=== PATIENT | female | born 1945 | race Caucasian/White ===

== ENCOUNTER 2018-02-27 21:54 | Inpatient (IN) | payer MEDICARE ==
[~2018-02-27] VITALS: Ht 160 cm; Wt 66.4 kg
--- NOTE | 2018-02-27 22:00 | NUR ---
73 yo female bb daughter. patient is alert and oriented, per daughter patient left eye and left mouth seems to be drooping. patient has a history of stroke with left sided deficit. noted weakness from left upper extremity, per family that is from her previous stroke. patient was assisted to er bed, skin warm and dry, resp even and unlabored. patient was gowned, placed on cardia monitor. awaiting orders from provider
[2018-02-27] MEDS ORDERED: GLIM4TAB2 PO (22:24)
[2018-02-27] MEDS ORDERED: METO25TA6 PO (22:24)
[2018-02-27] MEDS ORDERED: LEVO500T90 PO (22:26)
[2018-02-27] MEDS ORDERED: LOSA100T15 PO (22:26)
[2018-02-27] MEDS ORDERED: METF10004 PO (22:26)
[2018-02-27] MEDS ORDERED: ACID1TAB14 PO (22:26)
[2018-02-27] MEDS ORDERED: LORA0.5T PO (22:26)
[2018-02-27 22:30] LABS: BASOPHILS # (AUTO) 0.1 /CMM (0.0-0.2); BASOPHILS % (AUTO) 0.5 % (0.0-2.0); EOSINOPHILS % (AUTO) 0.2 % (0.0-6.0); HEMATOCRIT 34 % (33-45); HEMOGLOBIN 11.6 g/dL (11.5-14.8); LYMPHOCYTES # (AUTO) 1.9 /CMM (0.8-4.8); LYMPHOCYTES % (AUTO) 17.9 % (20.0-44.0); MEAN CORPUSCULAR HEMOGLOBIN 30 PG (26.0-33.0); MEAN CORPUSCULAR HGB CONC 34 g/dl (31.0-36.0); MEAN CORPUSCULAR VOLUME 88 fL (82-100); MONOCYTES # (AUTO) 0.7 /CMM (0.1-1.30); MONOCYTES % (AUTO) 6.9 % (2.0-12.0); NEUTROPHILS # (AUTO) 7.7 /CMM (1.8-8.9); NEUTROPHILS % (AUTO) 74.5 % (43.0-81.0); PLATELET COUNT (AUTO) 406 /CMM (150-450); RDW COEFFICIENT OF VARIATION 13.8 (11.5-15.0); RED BLOOD CELL COUNT(AUTO) 3.91 MIL/uL (4.0-5.2); WHITE BLOOD COUNT (AUTO) 10.4 K/uL (4.3-11.0)
[2018-02-27] MEDS ORDERED: IV NS 0.9% 1,000 ML BAG IV ONE (22:30)
[2018-02-27 22:44] LABS: ALANINE AMINOTRANSFERASE 22 U/L (12-78); ALBUMIN 3.9 g/dL (3.4-5.0); ALKALINE PHOSPHATASE 110 U/L (46-116); ASPARTATE AMINOTRANSFERASE 38 U/L (15-37); BILIRUBIN,DIRECT 0.1 mg/dL (0.0-0.2); BILIRUBIN,TOTAL 0.4 mg/dL (0.2-1.0); CALCIUM, SERUM 9.6 mg/dL (8.5-10.1); CARBON DIOXIDE 24 mmol/L (21-32); CHLORIDE 90 mmol/L (98-107); GLUCOSE 119 mg/dL (74-106); POTASSIUM 4.2 mmol/L (3.5-5.1); SODIUM SERUM 124 mmol/L (136-145); TOTAL PROTEIN, SERUM 8.3 g/dL (6.4-8.2); UREA NITROGEN, BLOOD 16 mg/dL (7-18)
[2018-02-27 22:46] LABS: TROPONIN I < 0.017 ng/mL (0.00-0.056)
--- NOTE | 2018-02-27 23:00 | NUR ---
BED 328-2
[2018-02-27 23:04] LABS: INR 0.96 (0.87-1.13)
--- NOTE | 2018-02-27 23:52 | NUR ---
REPORT GIVEN TO RN FOR JOCELYN
--- NOTE | 2018-02-27 23:59 | NUR ---
TRANSPORTED PT TO TELE BED WITHOUT INCIDENT
[2018-02-28] VITALS: BP 147/78
--- NOTE | 2018-02-28 | NUR ---
RN ADMITTING NOTES PATIENT BROUGHT INTO THE UNIT VIA GURNEY, PT IS ALERT AND ORIENTED X 2, NO SOB NOTED, BREATHING EVEN AND UNLABORED, VERBALLY RESPONSIVE. PT INITIALLY LOOKING FOR HER DAUGHTER, FIDEL WHO ACCOMPANIED PT IN THE ER AND LIVES WITH HER AT HOME. ORIENTED PT TO UNIT, ROOM, ADMISSION PROCESS, USE OF CALL LIGHT, VERBALIZED UNDERSTANDING BUT NEEDS REINFORCEMENT. CALLED PT'S DAUGHTER FIDEL, SPOKE WITH PATIENT AND RE-ASSURED PT SHE WILL BE IN THE UNIT IN THE AM. PATIENT AGREED BUT CONTINUES TO NEED REINFORCEMENT. ALL PATIENT'S NEEDS ATTENDED TO, CALL LIGHT PLACED WITHIN EASY REACH WITH SITTER AT BEDSIDE. WILL CONTINUE TO MONITOR THIS PATIENT.
--- NOTE | 2018-02-28 00:05 | NUR ---
HOT REPAIRMAN NOTES PATIENT UNDER TELE MONITORING, ST @ 105 BPM AT THIS TIME.
[2018-02-28] MEDS ORDERED: ONDANSETRON HCL/PF 4 MG/2 ML VIAL IVP PRN (00:30)
[2018-02-28] MEDS ORDERED: MAGNESIUM HYDROXIDE 30 ML UDC PO PRN (00:30)
[2018-02-28] MEDS ORDERED: ACETAMINOPHEN 325 MG TABLET PO PRN (00:30)
[2018-02-28] MEDS ORDERED: DEXTROSE 50%-WATER 50 ML DISP.SYRIN IV PRN (00:30)
[2018-02-28] MEDS ORDERED: HYDROCODONE/APAP 5/325MG 1 EACH TABLET PO PRN (00:30)
[2018-02-28] MEDS ORDERED: ZOLPIDEM TARTRATE 5 MG TABLET PO PRN (00:30)
[2018-02-28 00:35] LABS: CHOLESTEROL 141 mg/dL (<200); HDL CHOLESTEROL 33 mg/dL (40-60); LDL 89 mg/dL (0-99); TRIGLYCERIDES 160 mg/dL (30-150)
[2018-02-28] MEDS ORDERED: QUETIAPINE FUMARATE 25 MG TABLET PO PRN (01:00)
[2018-02-28] MEDS: ENOXAPARIN SODIUM 40 MG/0.4 ML DISP.SYRIN SQ SCH ×2 (01:09→23:38)
[2018-02-28] MEDS: LEVOFLOXACIN (500MG) 500 MG TABLET PO SCH ×2 (01:12→23:39)
[2018-02-28] MEDS: IV NS 0.9% 1,000 ML IV PRN ×2 (01:18→16:11)
[2018-02-28 01:54] LABS: ALANINE AMINOTRANSFERASE 21 U/L (12-78); ALBUMIN 3.7 g/dL (3.4-5.0); ALKALINE PHOSPHATASE 107 U/L (46-116); ASPARTATE AMINOTRANSFERASE 40 U/L (15-37); B-TYPE NATRIURETIC PEPTIDE 229 PG/ML (0-125); BILIRUBIN,TOTAL 0.5 mg/dL (0.2-1.0); CALCIUM, SERUM 8.5 mg/dL (8.5-10.1); CARBON DIOXIDE 27 mmol/L (21-32); CHLORIDE 91 mmol/L (98-107); CREATININE 0.9 mg/dL (0.6-1.3); GLUCOSE 119 mg/dL (74-106); POTASSIUM 4.3 mmol/L (3.5-5.1); SODIUM SERUM 125 mmol/L (136-145); TOTAL PROTEIN, SERUM 8.1 g/dL (6.4-8.2); UREA NITROGEN, BLOOD 16 mg/dL (7-18)
[2018-02-28 03:28] LABS: THYROID STIMULATING HORMONE 0.651 uIU/mL (0.358-3.74)
[2018-02-28 05:04] LABS: APPEARANCE,URINE CLEAR (CLEAR); BILIRUBIN,URINE NEGATIVE (NEGATIVE); BLOOD, URINE TRACE-INTA Ery/uL (NEGATIVE); COLOR,URINE OTHER (YELLOW); KETONES,URINE 1+ (NEGATIVE); LEUKOCYTE ESTERASE ,URINE NEGATIVE (NEGATIVE); NITRITE, URINE NEGATIVE (NEGATIVE); PH,URINE 7.5 (5.0-8.0); PROTEIN,URINE TRACE mg/dl (NEGATIVE); UGLUCOSE NEGATIVE (NEGATIVE); UROBILINOGEN,URINE 0.2 EU/dL (0.2)
[2018-02-28 05:23] LABS: BACTERIA,URINE Few /HPF (None Seen); SQUAMOUS EPITHELIAL CELL,UR Few /HPF (None Seen); WBC,URINE 21-50 /HPF (0-3)
[2018-02-28] MEDS: BLOOD SUGAR DIAGNOSTIC 1 EACH STRIP IN SCH ×4 (05:57→23:10)
[2018-02-28] MEDS: INSULIN REGULAR, HUMAN 100 UNIT/ML 3 ML VIAL SQ PRN ×4 (06:03→23:12)
[2018-02-28 06:36] LABS: BASOPHILS % (AUTO) 0.1 % (0.0-2.0); HEMATOCRIT 31 % (33-45); HEMOGLOBIN 10.5 g/dL (11.5-14.8); LYMPHOCYTES % (AUTO) 21.9 % (20.0-44.0); MEAN CORPUSCULAR HEMOGLOBIN 30 PG (26.0-33.0); MEAN CORPUSCULAR HGB CONC 34 g/dl (31.0-36.0); MEAN CORPUSCULAR VOLUME 89 fL (82-100); MONOCYTES # (AUTO) 0.6 /CMM (0.1-1.30); MONOCYTES % (AUTO) 6.7 % (2.0-12.0); NEUTROPHILS # (AUTO) 6.4 /CMM (1.8-8.9); NEUTROPHILS % (AUTO) 71.3 % (43.0-81.0); PLATELET COUNT (AUTO) 335 /CMM (150-450); RDW COEFFICIENT OF VARIATION 13.4 (11.5-15.0); RED BLOOD CELL COUNT(AUTO) 3.51 MIL/uL (4.0-5.2); WHITE BLOOD COUNT (AUTO) 8.9 K/uL (4.3-11.0)
--- NOTE | 2018-02-28 06:47 | NUR ---
HIGH SCHOOL LIBRARY MEDIA SPECIALIST CLOSING NOTES PATIENT IN BED, ASLEEP BUT EASILY AROUSABLE, NO SOB NOTED, BREATHING EVEN AND UNLABORED, PT IS COMPLIANT TO CARE, DENIES PAIN, NO FACIAL GRIMACING NOTED AND IS IN NO ACUTE DISTRESS. PT ALERT AND ORIENTED X 1 -2, ABLE TO VERBALIZE NEEDS. ALL PATIENT'S NEEDS ATTENDED TO, RE-ORIENTED NEEDED. SITTER AT BEDSIDE, BED PLACED IN LOW POSITION, LOCKED IN PLACE, CALL LIGHT IN EASY REACH. PT ON TELE MONITORING, SINUS RHYTHM/TACH AT 95-120s. TURNED AND REPOSITIONED Q2H, NEUROCHECKS DONE Q2H. WILL ENDORSE TO AM SHIFT NURSE FOR CONTINUITY OF CARE.
[2018-02-28 07:02] LABS: CALCIUM, SERUM 8.5 mg/dL (8.5-10.1); CARBON DIOXIDE 25 mmol/L (21-32); CHLORIDE 94 mmol/L (98-107); CREATININE 0.9 mg/dL (0.6-1.3); GLUCOSE 127 mg/dL (74-106); MAGNESIUM 1.6 mg/dL (1.8-2.4); POTASSIUM 4.5 mmol/L (3.5-5.1); SODIUM SERUM 129 mmol/L (136-145); UREA NITROGEN, BLOOD 16 mg/dL (7-18)
--- NOTE | 2018-02-28 08:00 | NUR ---
MS RN NOTES PATIENT IN BED RESTING NO SOB OR ACUTE DISTRESS NOTED. PATIENT NOTED WITH FACIAL DROOP WHICH HAS IMPROVED SINCE YESTERDAY. WITH LEFT SIDED WEAKNESS. PERIPHERAL IV INTACT PATENT. BED IN LOW LOCKED POSITION. CALL LIGHT WITHIN REACH. WILL CONTINUE TO MONITOR.
[2018-02-28] MEDS: ASPIRIN 81 MG TAB.CHEW PO SCH (08:55)
--- NOTE | 2018-02-28 09:00 | NUR ---
MS RN NOTES PATIENT SEEN AND EVALUATED BY DR. JONES ORDERS NOTED AND CARRIED OUT.
[2018-02-28] MEDS ORDERED: Magnesium 1GM/D5W 100ML PREMIX 100 ML IV SCH (10:00)
[2018-02-28] MEDS: Magnesium 1GM/D5W 100ML PREMIX 100 ML IV SCH ×2 (10:24→11:43)
[2018-02-28 11:55] LABS: CHOLESTEROL 122 mg/dL (<200); HDL CHOLESTEROL 26 mg/dL (40-60); LDL 82 mg/dL (0-99); TRIGLYCERIDES 176 mg/dL (30-150)
--- NOTE | 2018-02-28 18:15 | NUR ---
MS RN NOTES PATIENT IN BED RESTING DAUGHTER AT BEDSIDE. DAUGHTER STATES HAS HAS SIGNIFICANTLY IMPROVED SINCE YESTERDAY. PATIENT ALERT, ORIENTED X2. DENIES ANY DISCOMFORT. ALL DUE MEDICATIONS ADMINISTERED. ALL NEEDS MET WILL ENDORSE TO PM SHIFT.
--- NOTE | 2018-02-28 19:00 | NUR ---
MS RN OPENING NOTE RECEIVE PATIENT AWAKE IN BED, A/O X1-2,NO SOB OR DISTRESS NOTED, CALL LIGHT WITHIN REACH. SAFETY MEASURES IMPLEMENTED. WILL CONTINUE TO MONITOR THROUGHOUT SHIFT.
[2018-02-28 20:00] VITALS: BP 129/63
[2018-02-28] MEDS: ATORVASTATIN 10 MG TABLET PO SCH (21:08)
[2018-03-01] MEDS: IV NS 0.9% 1,000 ML IV PRN ×2 (05:15→21:08)
[2018-03-01] MEDS: BLOOD SUGAR DIAGNOSTIC 1 EACH STRIP IN SCH ×4 (05:24→23:14)
[2018-03-01] MEDS: INSULIN REGULAR, HUMAN 100 UNIT/ML 3 ML VIAL SQ PRN ×4 (05:25→23:19)
[2018-03-01 06:08] LABS: BASOPHILS % (AUTO) 0.3 % (0.0-2.0); HEMATOCRIT 33 % (33-45); HEMOGLOBIN 10.8 g/dL (11.5-14.8); LYMPHOCYTES # (AUTO) 2.3 /CMM (0.8-4.8); LYMPHOCYTES % (AUTO) 29.3 % (20.0-44.0); MEAN CORPUSCULAR HEMOGLOBIN 30 PG (26.0-33.0); MEAN CORPUSCULAR HGB CONC 33 g/dl (31.0-36.0); MEAN CORPUSCULAR VOLUME 90 fL (82-100); MONOCYTES # (AUTO) 0.6 /CMM (0.1-1.30); NEUTROPHILS # (AUTO) 4.9 /CMM (1.8-8.9); NEUTROPHILS % (AUTO) 62.4 % (43.0-81.0); PLATELET COUNT (AUTO) 326 /CMM (150-450); RDW COEFFICIENT OF VARIATION 13.4 (11.5-15.0); RED BLOOD CELL COUNT(AUTO) 3.65 MIL/uL (4.0-5.2); WHITE BLOOD COUNT (AUTO) 7.9 K/uL (4.3-11.0)
[2018-03-01 06:15] LABS: ALANINE AMINOTRANSFERASE 18 U/L (12-78); ALBUMIN 3.3 g/dL (3.4-5.0); ALKALINE PHOSPHATASE 87 U/L (46-116); ASPARTATE AMINOTRANSFERASE 24 U/L (15-37); BILIRUBIN,TOTAL 0.4 mg/dL (0.2-1.0); CALCIUM, SERUM 8.4 mg/dL (8.5-10.1); CARBON DIOXIDE 26 mmol/L (21-32); CHLORIDE 99 mmol/L (98-107); CREATININE 0.8 mg/dL (0.6-1.3); GLUCOSE 116 mg/dL (74-106); MAGNESIUM 2.2 mg/dL (1.8-2.4); POTASSIUM 3.6 mmol/L (3.5-5.1); SODIUM SERUM 132 mmol/L (136-145); TOTAL PROTEIN, SERUM 7.3 g/dL (6.4-8.2); UREA NITROGEN, BLOOD 12 mg/dL (7-18)
--- NOTE | 2018-03-01 06:16 | NUR ---
MS RN CLOSING NOTES PT COMFORTABLY ASLEEP AND EASILY AWAKEN, STABLE CONDITION. RESPIRATION EVEN AND UNLABORED. KEPT CLEAN AND DRY AND COMFORTABLE, ALL NURSING CARE RENDERED. NEEDS ATTENDED AND ANTICIPATED, NOT IN DISTRESS, NO FACIAL GRIMACING NOTED. ASSISTED REPOSITION EVERY 2 HOURS. ON LOW BED AT ALL TIMES TO ENSURE SAFETY. SAFE HAZARD FREE ENVIRONMENT PROVIDED. CALL LIGHT WITHIN EASY TO REACH. WILL ENDORSE NEXT SHIFT CONTINUITY OF CARE.
[2018-03-01 08:00] VITALS: BP 135/76
[2018-03-01] MEDS: ASPIRIN 81 MG TAB.CHEW PO SCH (10:22)
--- NOTE | 2018-03-01 16:35 | NUR ---
BLOOD SUGARS STABLE,MED X1 FOR HEADACHE WITH TYLENOL 650 MG PO.
[2018-03-01 18:36] VITALS: BP 137/66
--- NOTE | 2018-03-01 19:09 | NUR ---
MS RN OPENING NOTE RECEIVE PATIENT AWAKE IN BED, A/O X1, NO SOB OR DISTRESS NOTED, CALL LIGHT WITHIN REACH. SAFETY MEASURES IMPLEMENTED. WILL CONTINUE TO MONITOR THROUGHOUT SHIFT.
[2018-03-01 20:00] VITALS: BP 149/71
[2018-03-01] MEDS: ATORVASTATIN 10 MG TABLET PO SCH (21:08)
[2018-03-01] MEDS: LEVOFLOXACIN (500MG) 500 MG TABLET PO SCH (23:32)
[2018-03-01] MEDS: ENOXAPARIN SODIUM 40 MG/0.4 ML DISP.SYRIN SQ SCH (23:34)
[2018-03-02] MEDS: INSULIN REGULAR, HUMAN 100 UNIT/ML 3 ML VIAL SQ PRN ×3 (05:30→17:18)
[2018-03-02] MEDS: BLOOD SUGAR DIAGNOSTIC 1 EACH STRIP IN SCH ×3 (05:31→17:17)
--- NOTE | 2018-03-02 06:29 | NUR ---
MS RN CLOSING NOTES PT COMFORTABLY ASLEEP AND EASILY AWAKEN, RESPIRATION EVEN AND UNLABORED.STABLE,NOT IN DISTRESS. KEPT CLEAN AND DRY AND COMFORTABLE, ALL NURSING CARE RENDERED. NEEDS ATTENDED AND ANTICIPATED,NO FACIAL GRIMACING NOTED. ASSISTED REPOSITION EVERY 2 HOURS. ON LOW BED AT ALL TIMES TO ENSURE SAFETY. SAFE HAZARD FREE ENVIRONMENT PROVIDED. CALL LIGHT WITHIN EASY TO REACH. WILL ENDORSE NEXT SHIFT CONTINUITY OF CARE.
--- NOTE | 2018-03-02 07:10 | NUR ---
RN NOTES PT IS SITTING UP IN BED, AWAKE AND RESTING COMFORTABLY WITH SITTER AT BEDSIDE. PT ON RA, RESPIRATIONS ARE EVEN AND UNLABORED. IV ON RFA INTACT AND RUNNING NS @ 75ML/HR. NO SIGNS OF DISTRESS NOTED. SAFETY MEASURES ARE IN PLACE, CALL LIGHT IS IN REACH. WILL CONTINUE TO MONITOR.
[2018-03-02 08:00] VITALS: BP 102/65
[2018-03-02] MEDS: ASPIRIN 81 MG TAB.CHEW PO SCH (08:13)
[2018-03-02 16:00] VITALS: BP 149/83
[2018-03-02 16:30] VITALS: BP 178/91
--- NOTE | 2018-03-02 17:05 | NUR ---
RN NOTES BP IS 178/91, MADE AWARE. METOPROLOL 25MG BID ORDERED. WILL ADMINISTER AND CONTINUE TO MONITOR.
[2018-03-02] MEDS: METOPROLOL TARTRATE 25 MG TABLET PO SCH (17:17)
[2018-03-02 18:40] VITALS: BP 155/78
--- NOTE | 2018-03-02 18:45 | NUR ---
RN NOTES PT IS LAYING DOWN IN BED, RESTING COMFORTABLY. PT ON RA, RESPIRATIONS ARE EVEN AND UNLABORED. IV ON RFA INTACT AND RUNNING NS @ 75ML/HR. ALL MEDS WERE GIVEN ORDERED. PT KEPT CLEAN AND DRY, REPOSITIONED Q2HRS. NO SIGNS OF DISTRESS NOTED. SAFETY MEASURES ARE IN PLACE, CALL LIGHT IS IN REACH. WILL ENDORSE TO USER EXPERIENCE TEAM LEAD RN FOR CONTINUITY OF CARE.
--- NOTE | 2018-03-02 19:20 | NUR ---
RN MS NOTES NOTED PATIENT WITH ELEVATED BLOOD PRESSURE OF 168/103, HR 110, NO DISTRESS PRESENT AT THIS TIME, MD MAYO AWARE WITH NEW ORDERS.AWAIT FOR PHARMACY VERIFICATION. BLOOD PRESSURE WAS ALSO TAKEN MANUALLY AT 170/100, HR 110. WILL CONTINUE TO MONITOR.
--- NOTE | 2018-03-02 19:35 | NUR ---
RN MS NOTES PATIENT IN BED AWAKE ALERT TO SELF ABLE TO HAVE SIMPLE CONVERSATIONS NOTED FORGETFUL AND CONFUSED AT TIMES. UZBEK SPEAKER, DENIES ANY PAIN OR DISCOMFORT AT THIS TIME, RESPIRATIONS EVEN AND UNLABORED WITH EQUAL RISE AND FALL OF CHEST. IV SITE TO RIGHT FA #20 INTACT AND PATENT, NO REDNESS, NO INFILTRATION PRESENT, IVF RUNNING ORDERED, ORIENTED TO STAFF AND CALL LIGHT, CALL LIGHT KEPT WITHIN REACH, SAFETY PRECAUTIONS IN PLACE LOW BED, BED LOCKED , BED ALARM IN PLACE, FLUIDS OFFERED TOLERATED , PATIENT REMAINS COMFORTABLE AT THIS TIME.WILL CONTINUE TO MONITOR.
[2018-03-02] MEDS: hydrALAZINE HCL 10 MG TABLET PO PRN (19:49)
[2018-03-02 19:59] VITALS: BP 168/103
[2018-03-02 20:00] VITALS: BP 168/103
[2018-03-02] MEDS: ATORVASTATIN 10 MG TABLET PO SCH (21:26)
--- NOTE | 2018-03-02 21:45 | NUR ---
RN MS NOTES BLOOD PRESSURE REASSESSED NOTED MEDICATION WAS EFFECTIVE. 137/71, HR 97.
[2018-03-03] MEDS: BLOOD SUGAR DIAGNOSTIC 1 EACH STRIP IN SCH ×3 (00:23→12:14)
[2018-03-03] MEDS: INSULIN REGULAR, HUMAN 100 UNIT/ML 3 ML VIAL SQ PRN ×3 (00:30→12:25)
[2018-03-03] MEDS: LEVOFLOXACIN (500MG) 500 MG TABLET PO SCH (00:35)
[2018-03-03] MEDS: ENOXAPARIN SODIUM 40 MG/0.4 ML DISP.SYRIN SQ SCH (00:47)
[2018-03-03] MEDS: IV NS 0.9% 1,000 ML IV PRN (04:03)
[2018-03-03 06:33] LABS: BASOPHILS % (AUTO) 0.4 % (0.0-2.0); EOSINOPHILS % (AUTO) 0.7 % (0.0-6.0); HEMATOCRIT 33 % (33-45); HEMOGLOBIN 10.9 g/dL (11.5-14.8); LYMPHOCYTES # (AUTO) 1.6 /CMM (0.8-4.8); LYMPHOCYTES % (AUTO) 20.5 % (20.0-44.0); MEAN CORPUSCULAR HEMOGLOBIN 30 PG (26.0-33.0); MEAN CORPUSCULAR HGB CONC 33 g/dl (31.0-36.0); MEAN CORPUSCULAR VOLUME 90 fL (82-100); MONOCYTES # (AUTO) 0.4 /CMM (0.1-1.30); MONOCYTES % (AUTO) 5.1 % (2.0-12.0); NEUTROPHILS # (AUTO) 5.8 /CMM (1.8-8.9); NEUTROPHILS % (AUTO) 73.3 % (43.0-81.0); PLATELET COUNT (AUTO) 354 /CMM (150-450); RDW COEFFICIENT OF VARIATION 13.7 (11.5-15.0); RED BLOOD CELL COUNT(AUTO) 3.69 MIL/uL (4.0-5.2); WHITE BLOOD COUNT (AUTO) 7.9 K/uL (4.3-11.0)
[2018-03-03 06:35] LABS: CALCIUM, SERUM 8.8 mg/dL (8.5-10.1); CARBON DIOXIDE 27 mmol/L (21-32); CHLORIDE 101 mmol/L (98-107); CREATININE 0.7 mg/dL (0.6-1.3); GLUCOSE 165 mg/dL (74-106); POTASSIUM 3.4 mmol/L (3.5-5.1); SODIUM SERUM 135 mmol/L (136-145); UREA NITROGEN, BLOOD 10 mg/dL (7-18)
--- NOTE | 2018-03-03 06:50 | NUR ---
RN MS CLOSING NOTES PATIENT IN BED AWAKE ALERT AND VERBALLY RESPONSIVE, RESPIRATIONS EVEN AND UNLABORED WITH EQUAL RISE AND FALL OF CHEST, DENIES ANY PAIN OR DISCOMFORT AT THIS TIME IV SITE TO RIGHT FA #22 INTACT AND PATENT, NO REDNESS, NO INFILTRATION PRESENT, IVF RUNNING ORDERED. PERINEAL CARE PROVIDED. FLUIDS WERE OFFERED TOLERATED, NO CHANGES OF CONDITION THROUGHOUT SHIFT, SAFETY PRECAUTIONS CONTINUE TO REMAIN IN PLACE. ALL NEEDS ATTENDED, CALL LIGHT KEPT WITHIN REACH, BED ALARM ON. WILL CONTINUE TO MONITOR AND ENDORSE TO NEXT SHIFT.
--- NOTE | 2018-03-03 07:20 | NUR ---
RN OPENING NOTES RECEIVED PT. PT STABLE AND RESTING IN BED. A/OX2, WOLOF SPEAKING ONLY. NO S/S OF RESP DISTRESS OR SOB. NO C/O PAIN. PT TO CONT ABX THERAPY FOR UTI DX. SAFETY MEASURES IN PLACE, CALL LIGHT WITHIN REACH. WILL CONTINUE TO MONITOR.
[2018-03-03 08:00] VITALS: BP 147/82
[2018-03-03] MEDS: ASPIRIN 81 MG TAB.CHEW PO SCH (08:31)
[2018-03-03] MEDS: METOPROLOL TARTRATE 25 MG TABLET PO SCH ×2 (08:32→17:04)
[2018-03-03] MEDS ORDERED: METO25TA20 PO (08:35)
[2018-03-03] MEDS ORDERED: ATOR10TA PO (08:35)
[2018-03-03] MEDS ORDERED: ASPI-1169 PO (08:35)
[2018-03-03] MEDS: POTASSIUM CHLORIDE 20 MEQ TAB.PRT.SR PO SCH ×2 (11:00→12:15)
[2018-03-03] MEDS: hydrALAZINE HCL 10 MG TABLET PO PRN (13:59)
[2018-03-03 16:00] VITALS: BP 135/80
[2018-03-03 17:04] VITALS: BP 135/80
--- NOTE | 2018-03-03 18:30 | NUR ---
BACTERIOLOGIST FOOD NOTE PT DISCHARGED TO [facility]. VSS, NO S/S OF RESP DISTRESS OR SOB. PT HAS NO C/O PAIN AT THIS TIME. DISCHARGE TEACHING PERFORMED, PT REQUIRES ADDITIONAL TEACHING FROM [facility], UNABLE TO VERBALIZE UNDERSTANDING. DISCHARGE INSTRUCTIONS GIVEN TO PT AND [facility]ON[facility] NAYLOR DURING REPORT. IV ACCESS AND ID BAND REMOVED. PT UNABLE TO SIGN D/C INSTRUCTIONS AND BELONGINGS SHEET, BOTH WERE COSIGNED BY ADDITIONAL LICENSED RN. WOUND PHOTO DOCUMENTATION TAKEN BY PREVIOUS VP STRATEGIC PARTNERSHIPS ON 03/03/18 AT APPROXIMATELY 0030. PT LEFT HOSPITAL IN PRIVATE AMBULANCE WITH PARAMEDICS.
== END 2018-03-03 18:48 | DRG 64 ==
LOC: ER 21:58 → TELE 23:31 → MED 02-28 08:23
PROVIDERS: ADMIT Nurse Practitioner Acute Care; ATTEND Nurse Practitioner Acute Care
DX: I63.9 Cerebral infarction, unspecified (principal); G93.41 Metabolic encephalopathy; E87.1 Hypo-osmolality and hyponatremia; E87.2 Acidosis; E86.0 Dehydration; F03.90 Unspecified dementia, unspecified severity, without behavioral disturbance, psychotic disturbance, mood disturbance, and anxiety; I10 Essential (primary) hypertension; Z79.84 Long term (current) use of oral hypoglycemic drugs; Z79.899 Other long term (current) drug therapy; Z86.73 Personal history of transient ischemic attack (TIA), and cerebral infarction without residual deficits; E83.42 Hypomagnesemia; E11.65 Type 2 diabetes mellitus with hyperglycemia; G20 Parkinson's disease
CPT/HCPCS: 36415; 70450-TC; 71045-TC; 80048-TC; 80053-TC; 80061-TC; 80076-TC; 80305; 81000-TC; 82962-TC; 83605-TC; 83735-TC; 83880; 84100-TC; 84443-TC; 84484-TC; 85025-TC; 85652-TC; 85730-TC; 87040-TC; 87081-TC; 87086-TC; 92611-TC; 93307-TC; 93880-TC; 97116-TC; 97530-TC; 97535-TC; A4606; J1650; J1815; J3475; J7030; J7040; Z7610

== ENCOUNTER 2018-07-24 21:47 | Inpatient (IN) | payer MEDICARE ==
[~2018-07-24] VITALS: Ht 160 cm; Wt 606.9 kg
[~2018-07-24 21:47] MED LIST: ACID1TAB14 PO; ASPI-1169 PO; ATOR10TA PO; GLIM4TAB2 PO; LEVO500T90 PO; LORA0.5T PO; LOSA100T31 PO; METF-442 PO; METO25TA20 PO; METO25TA6 PO
--- NOTE | 2018-07-24 22:18 | NUR ---
BBDAUGHTER FROM HOME, PER DAUGHTER "MORE ALTERED THAN NORMAL W/ GENERALIZED WEAKNESS & MORE DIFFICULTY SWALLOWING & WALKING." DAUGHTER STATES PT IS USUALLY ABLE TO FOLLOW COMMANDS, NOTICED CHANGED X2 DAYS AGO, WORSE TODAY. PT IS AWAKE AND CONFUSED. NO ACUTE DISTRESS NOTED AT THIS TIME. PLACED ON CONTINUOUS SANITARY INSPECTOR, WILL CONTINUE TO MONITOR
--- NOTE | 2018-07-24 22:19 | NUR ---
IV INITIATED RIGHT FORARM 18G. LABS DRAWN FROM SITE. RESIDENTIAL PLUMBER AT BEDSIDE FOR COLLECTION. IV INTACT AND PATENT
--- NOTE | 2018-07-24 22:25 | NUR ---
URINE COLLECTED AND PICKED UP BY LAB
[2018-07-24 22:27] LABS: HEMATOCRIT 35 % (33-45); HEMOGLOBIN 11.7 g/dL (11.5-14.8); LYMPHOCYTES # (AUTO) 7.9 /CMM (0.8-4.8); MEAN CORPUSCULAR HGB CONC 34 g/dl (31.0-36.0); MEAN CORPUSCULAR VOLUME 87 fL (82-100); MONOCYTES # (AUTO) 1.3 /CMM (0.1-1.30); MONOCYTES % (AUTO) 12.5 % (2.0-12.0); NEUTROPHILS # (AUTO) 1.3 /CMM (1.8-8.9); NEUTROPHILS % (AUTO) 12.5 % (43.0-81.0); PLATELET COUNT (AUTO) 420 /CMM (150-450); WHITE BLOOD COUNT (AUTO) 10.5 K/uL (4.3-11.0)
[2018-07-24] MEDS ORDERED: IV NS 0.9% 1,000 ML BAG IV ONE (22:30)
[2018-07-24 22:35] LABS: APPEARANCE,URINE SL CLOUDY (CLEAR); BILIRUBIN,URINE NEGATIVE (NEGATIVE); BLOOD, URINE TRACE Ery/uL (NEGATIVE); COLOR,URINE YELLOW (YELLOW); KETONES,URINE NEGATIVE (NEGATIVE); LEUKOCYTE ESTERASE ,URINE 3+ (NEGATIVE); NITRITE, URINE NEGATIVE (NEGATIVE); PROTEIN,URINE NEGATIVE (NEGATIVE); UGLUCOSE NEGATIVE (NEGATIVE); UROBILINOGEN,URINE 0.2 EU/dL (0.2)
[2018-07-24 22:39] LABS: CALCIUM, SERUM 9.2 mg/dL (8.5-10.1); CARBON DIOXIDE 26 mmol/L (21-32); CHLORIDE 92 mmol/L (98-107); CREATININE 0.8 mg/dL (0.6-1.3); GLUCOSE 88 mg/dL (74-106); POTASSIUM 4.4 mmol/L (3.5-5.1); SODIUM SERUM 129 mmol/L (136-145); UREA NITROGEN, BLOOD 15 mg/dL (7-18)
[2018-07-24 22:42] LABS: BACTERIA,URINE Few /HPF (None Seen); SQUAMOUS EPITHELIAL CELL,UR Few /HPF (None Seen); WBC,URINE TOO NUMEROUS TO COUN /HPF (0-3)
--- NOTE | 2018-07-24 22:53 | NUR ---
PT BROUGHT BY RADIOLOGY FOR CT
[2018-07-24] MEDS ORDERED: OLANZAPINE 5 MG TABLET PO ONE (23:00)
[2018-07-24] MEDS ORDERED: CEFTRIAXONE 1GM BAG (ER ONLY) 1 GM/50 ML PIGGYBACK IV ONE (23:00)
[2018-07-24] MEDS ORDERED: CEFTRIAXONE 1GM BAG (ER ONLY) 50 ML IV ONE (23:07)
[2018-07-24] MEDS ORDERED: OLANZAPINE 5 MG TABLET ONE (23:07)
--- NOTE | 2018-07-24 23:42 | NUR ---
GAVE REPORT TO GEORGIE PATTERSON FOR JOCELYN
[2018-07-25] MEDS ORDERED: IV NS 0.9% 1,000 ML IV PRN (00:04)
[2018-07-25 00:21] VITALS: BP 148/76
[2018-07-25] MEDS ORDERED: LORA-259 PO (00:24)
--- NOTE | 2018-07-25 00:25 | NUR ---
PT TRANSFERRED TO HI BED 327-2
[2018-07-25] MEDS ORDERED: HYDROCODONE/APAP 5/325MG 1 EACH TABLET PO PRN (00:30)
[2018-07-25] MEDS ORDERED: MAG HYDROX/AL HYDROX/SIMETH 30 ML UDC PO PRN (00:30)
[2018-07-25] MEDS ORDERED: ACETAMINOPHEN 325 MG TABLET PO PRN (00:30)
[2018-07-25] MEDS ORDERED: MAGNESIUM HYDROXIDE 30 ML UDC PO PRN (00:30)
[2018-07-25] MEDS ORDERED: Z GUARD REMEDY 2 OZ OINT TP PRN (00:30)
[2018-07-25] MEDS ORDERED: ONDANSETRON HCL/PF 4 MG/2 ML VIAL IVP PRN (00:30)
[2018-07-25] MEDS ORDERED: ZOLPIDEM TARTRATE 5 MG TABLET PO PRN (00:30)
--- NOTE | 2018-07-25 00:30 | NUR ---
RN MS ADMISSION NOTES PT BROUGHT INTO THE UNIT VIA GURNEY ACCOMPANIED BY EMT FROM ED. PT IS ALERT AND ORIENTED TO SELF, ABLE TO ANSWER TO NAME AND AWARE OF DATE OF . REORIENTED PATIENT TO TIME, PLACE AND SITUATION. PATIENT WITH NO SOB, BREATHING EVEN, NO FACIAL GRIMACING NOTED AND UNLABORED AND IN NO ACUTE DISTRESS AT THIS TIME. NOTED PT TO BE VERBALLY RESPONSIVE, WITH SLURRED SPEECH, ATTEMPTED TO ORIENT PT TO UNIT, ROOM, CALL LIGHT AND USE OF CALL LIGHT BUT PT HAS POOR CONCENTRATION AND NEEDS REINFORCEMENT. PT'S BED PLACED IN LOW POSITION AND LOCKED IN PLACE, CALL LIGHT PLACED WITHIN EASY REACH. WILL CONTINUE TO MONITOR PT.
[2018-07-25 01:52] LABS: BILIRUBIN,DIRECT 0.1 mg/dL (0.0-0.2); BILIRUBIN,TOTAL 0.3 mg/dL (0.2-1.0)
--- NOTE | 2018-07-25 04:31 | NUR ---
RN NOTE RECEIVED CALL FROM DR. LÓPEZ, INFORMED HIM OF PT'S LACTIC ACID LEVEL = 3.2. MD WITH NEW ORDER TO INCREASE IVF TO 100ML/HR. ALL ORDERS NOTED AND CARRIED OUT. PT AFEBRILE, IN NO ACUTE DISTRESS. WILL CONTINUE TO MONITOR.
[2018-07-25] MEDS: IV NS 0.9% 1,000 ML IV PRN ×2 (06:19→17:03)
--- NOTE | 2018-07-25 06:27 | NUR ---
CLOSING NOTES PT IN BED, ALERT AND ORIENTED X 2, VERBALLY RESPONSIVE. NOTED PT WITH EPISODES OF YELLING AND USING OFFENSIVE TOWARDS STAFF. ADMINISTERED ATIVAN ORDERED, PT COMPLIANT WITH MEDICATION ADMINISTRATION. PT SLEPT INTERMITTENTLY THROUGHOUT THE REST OF THE SHIFT, ALL NEEDS ATTENDED TO, WOUND CARE DONE. TURNED AND REPOSITIONED Q2 HOURS. BED LIGHT WITHIN EASY REACH. WILL ENDORSE TO AM SHIFT NURSE FOR CONTINUITY OF CARE.
[2018-07-25 08:00] VITALS: BP 142/70
--- NOTE | 2018-07-25 08:02 | NUR ---
MS RN NOTES RECEIVED PATIENT ASLEEP IN BED WITH NO DISTRESS NOTED. CALL LIGHT WITHIN REACH. NO C/O PAIN OR DISCOMFORT. PERIPHERAL LINE INTACT AND PATENT. ALL BELONGINGS KEPT NEAR BEDSIDE. BED IN LOW LOCK SETTING. WILL CONTINUE TO MONITOR.
[2018-07-25] MEDS ORDERED: ASPI-1169 PO (08:57)
[2018-07-25] MEDS ORDERED: ATOR10TA PO (08:57)
[2018-07-25] MEDS: METOPROLOL TARTRATE 25 MG TABLET PO SCH ×2 (10:57→21:12)
[2018-07-25 16:00] VITALS: BP 137/68
--- NOTE | 2018-07-25 18:51 | NUR ---
MS RN CLOSING NOTES PATIENT AWAKE IN BED WITH NO DISTRESS NOTED. CALL LIGHT WITHIN REACH. NO C/O PAIN OR DISCOMFORT. PERIPHERAL LINE INTACT AND PATENT. ALL DUE MEDS GIVEN ORDERED WITH NO ASE NOTED. CALL BELONGINGS KEPT NEAR BEDSIDE. BED IN LOW LOCK SETTING. WILL ENDORSE TO ONCOMING SHIFT.
[2018-07-25] MEDS ORDERED: DEXTROSE 50%-WATER 50 ML DISP.SYRIN IV PRN (19:30)
[2018-07-25 20:00] VITALS: BP 155/62
--- NOTE | 2018-07-25 20:00 | NUR ---
RECIEVED ALERT THAT NURSE AT THE BEDSIDE BUT CONFUSED TO THE SITUATION. TV ON TO ATTEMPT TO REORIENTATE HER. OFFERED FLUIDS SWALLOWED W/O PROBLEM ASP D/T HER AGE
[2018-07-25 20:34] VITALS: BP 155/62
--- NOTE | 2018-07-25 20:52 | NUR ---
patient speaks Armenian and confused,lives at home with daughter who is his primary caregiver.Patient requires max assist with adl's. He own a walker and wheelchair as needed for mobility. Family is involved and supportive with plan of care. Addendum: 07/25/18 at 2051 by INOCENCIO GAMBOA RN Amended: Links added.
[2018-07-25] MEDS: ATORVASTATIN 10 MG TABLET PO SCH (21:11)
[2018-07-25] MEDS: CEFTRIAXONE 1 G in IV D5W 50 ML IV SCH (21:11)
[2018-07-25] MEDS: BLOOD SUGAR DIAGNOSTIC 1 EACH STRIP IN SCH (21:26)
[2018-07-25] MEDS: INSULIN REGULAR, HUMAN 100 UNIT/ML 3 ML VIAL SQ PRN (21:30)
[2018-07-25] MEDS ORDERED: LORAZEPAM 0.5 MG TABLET PO PRN (22:00)
[2018-07-26] MEDS: IV NS 0.9% 1,000 ML IV PRN ×2 (04:21→17:36)
--- NOTE | 2018-07-26 04:30 | NUR ---
MD LÓPEZ CALLED MADE AWARE THE BLOOD PRESSURE 70/40 HR 83 INSTRUCTED TO GIVE NS BOLUS 1000ML NOW Addendum: 07/26/18 at 0452 by TREVER POLLARD RN WRONG PATIENT DISREGARD
[2018-07-26] MEDS: BLOOD SUGAR DIAGNOSTIC 1 EACH STRIP IN SCH ×5 (06:33→21:21)
[2018-07-26] MEDS: INSULIN REGULAR, HUMAN 100 UNIT/ML 3 ML VIAL SQ PRN ×4 (06:37→21:31)
--- NOTE | 2018-07-26 06:41 | NUR ---
ENDING NOTES: ALERT WITH CONFUSION. TAKES FLUIDS AND SWALLOWS W/O PROBLEMS BLOOD SUGAR THIS AM 165 3 UNITS GIVEN
--- NOTE | 2018-07-26 07:12 | NUR ---
MS RN NOTES PATIENT IN BED EYES CLOSED, EASY TO AROUSE. RESPOND TO VERBAL AND TACTILE STIMULI. NO ACUTE DISTRESS NOTED. BREATHING UNLABORED. NO SOB NOTED. IV ACCESS PATENT AND INTACT, NO REDNESS OR SWELLING NOTED. SAFETY MEASURES IN PLACE. CALL LIGHT WITHIN REACH. WILL CONTINUE TO MONITOR ACCORDINGLY.
[2018-07-26 07:32] LABS: BASOPHILS % (AUTO) 0.5 % (0.0-2.0); EOSINOPHILS % (AUTO) 0.6 % (0.0-6.0); HEMATOCRIT 35 % (33-45); HEMOGLOBIN 11.8 g/dL (11.5-14.8); LYMPHOCYTES % (AUTO) 12.4 % (20.0-44.0); MEAN CORPUSCULAR HGB CONC 33 g/dl (31.0-36.0); MEAN CORPUSCULAR VOLUME 88 fL (82-100); MONOCYTES # (AUTO) 0.6 /CMM (0.1-1.30); MONOCYTES % (AUTO) 8.1 % (2.0-12.0); NEUTROPHILS # (AUTO) 6.1 /CMM (1.8-8.9); NEUTROPHILS % (AUTO) 78.4 % (43.0-81.0); PLATELET COUNT (AUTO) 378 /CMM (150-450); RED BLOOD CELL COUNT(AUTO) 4.02 MIL/uL (4.0-5.2); WHITE BLOOD COUNT (AUTO) 7.7 K/uL (4.3-11.0)
[2018-07-26 07:47] LABS: CHOLESTEROL 138 mg/dL (<200); HDL CHOLESTEROL 34 mg/dL (40-60); LDL 101 mg/dL (0-99); TRIGLYCERIDES 94 mg/dL (30-150)
[2018-07-26 07:53] LABS: ALANINE AMINOTRANSFERASE 13 U/L (12-78); ALBUMIN 3.4 g/dL (3.4-5.0); ALKALINE PHOSPHATASE 93 U/L (46-116); ASPARTATE AMINOTRANSFERASE 14 U/L (15-37); BILIRUBIN,TOTAL 0.5 mg/dL (0.2-1.0); CALCIUM, SERUM 8.9 mg/dL (8.5-10.1); CARBON DIOXIDE 25 mmol/L (21-32); CHLORIDE 99 mmol/L (98-107); CREATININE 0.7 mg/dL (0.6-1.3); GLUCOSE 188 mg/dL (74-106); MAGNESIUM 1.5 mg/dL (1.8-2.4); PHOSPHORUS 3.1 mg/dL (2.5-4.9); POTASSIUM 3.5 mmol/L (3.5-5.1); SODIUM SERUM 137 mmol/L (136-145); TOTAL PROTEIN, SERUM 7.5 g/dL (6.4-8.2); UREA NITROGEN, BLOOD 10 mg/dL (7-18)
[2018-07-26 08:00] VITALS: BP 162/88
[2018-07-26] MEDS: METOPROLOL TARTRATE 25 MG TABLET PO SCH ×2 (08:44→21:21)
[2018-07-26] MEDS: ASPIRIN 81 MG TAB.CHEW PO SCH (08:44)
--- NOTE | 2018-07-26 09:45 | NUR ---
MS RN NOTES SEEN AND EVALUATED FREIGHT BREAKER FELICIA SALAS WITH NEW ORDERS MADE, NOTED AND CARRIED OUT.
[2018-07-26] MEDS: FLUCONAZOLE (100 MG) 100 MG TABLET PO SCH (10:02)
[2018-07-26] MEDS: Magnesium 1GM/D5W 100ML PREMIX 100 ML IV SCH ×2 (10:33→11:41)
[2018-07-26 16:00] VITALS: BP 142/70
--- NOTE | 2018-07-26 19:00 | NUR ---
MS RN NOTES PATIENT IN BED ALERT WITH PERIODS OF CONFUSION. NO ACUTE DISTRESS NOTED. BREATHING UNLABORED. NO SOB NOTED. IV ACCESS PATENT AND INTACT, NO REDNESS OR SWELLING NOTED. DUE MEDICATIONS GIVEN, NO ASE NOTED. NEEDS ATTENDED AND ANTICIPATED. KEPT CLEAN DRY AND COMFORTABLE.SAFETY MEASURES IN PLACE. CALL LIGHT WITHIN REACH. ENDORSED TO NIGHT NURSE FOR CONTINUITY OF CARE.
--- NOTE | 2018-07-26 19:30 | NUR ---
MS PACU NURSE INITIAL NOTES RECEIVED REPORT FROM AM NURSE AND CHECKING PT IN BED , AWAKE AND ALERT WITH IVF OF NS AT 100ML/HR INFUSING ON HER LEFT FOREARM. NOTICED PT CONFUSION , RE-ORIENTED WHERE SHE AT AND HOW TO USED THE CALL LIGHT SYSTEM. SHE SPEAK EQUATORIAL GUINEAN BUT UNDERSTOOD SOME SIMPLE ARMENIAN. DENIES ANY PAIN OR ANY DISCOMFORT. KEPT HER WARM AND COMFORTABLE AT ALL TIMES. WILL CONTINUE MONITORING. PLACE CALL LIGHT AT REACH. BED ALARM SET FOR PT SAFETY.
[2018-07-26 20:00] VITALS: BP 151/83
[2018-07-26] MEDS: CEFTRIAXONE 1 G in IV D5W 50 ML IV SCH (21:01)
[2018-07-26] MEDS: ATORVASTATIN 10 MG TABLET PO SCH (21:20)
--- NOTE | 2018-07-26 21:25 | NUR ---
MS SHENG NOTES ROUTINE MEDS GIVEN AND BLOOD SUGAR CHECKED DONE 195 3 UNITS OF INSULIN GIVEN KAYLYN SQ ORDERED AND SNACKS ALSO SERVED. IVF NS AT 100 ML/HR STILL INFUSING. FREQUENT RE- ORIENTATION . WILL CONTINUE MONITORING. PLACE CALL LIGHT AT REACH.
[2018-07-26 22:23] VITALS: BP 151/83
--- NOTE | 2018-07-27 05:08 | NUR ---
MS SHENG NOTES PT SLEEPING COMFORTABLY IN BED WITHOUT ANY ACUTE DISTRESS NOTED. KEPT HER WARM AND COMFORTABLE AT ALL TIMES. PLACE CALL LIGHT AT REACH. WILL CONTINUE MONITORING.
[2018-07-27] MEDS: IV NS 0.9% 1,000 ML IV PRN ×2 (05:54→16:03)
--- NOTE | 2018-07-27 06:21 | NUR ---
MS SCHOOL BUS DRIVER/TEACHER ASSISTANT NOTES BLOOD SUGAR CHECKED DONE 199, 3 UNITS OF INSULIN GIVEN SQ ORDERED, NO SIGNS OF HYPER GLYCEMIA NOTED. PT STILL WITH IVF OF NS AT 100ML/HR. WILL CONTINUE MONITORING.
[2018-07-27] MEDS: INSULIN REGULAR, HUMAN 100 UNIT/ML 3 ML VIAL SQ PRN ×4 (06:28→21:45)
[2018-07-27] MEDS: BLOOD SUGAR DIAGNOSTIC 1 EACH STRIP IN SCH ×4 (06:29→21:38)
--- NOTE | 2018-07-27 07:10 | NUR ---
MS RN OPENING NOTES PT AWAKE AND CONFUSED, ORIENTED X1 . BREATHING UNLABORED ON ROOM AIR. IV TO LFA #22 INFUSING NS AT 100 ML/HR. SAFETY PRECAUTIONS OBSERVED. CALL LIGHT WITHIN REACH. WILL CONTINUE TO MONITOR .
--- NOTE | 2018-07-27 07:23 | NUR ---
MS CLIENT ARCHITECT CLOSING NOTES PT AWAKE AND ALERT WITH CONFUSION, ASKING FOR BANANA LEFT MESSAGES TO DIETARY DEPT. STABLE KAYLYN THE NIGHT BUT SLEPT ON AND OFF. IVF STILL INFUSING AND IV LINE PATENT AND INTACT COVERED WITH KERLIX. KEPT HER WARM AND COMFORTABLE AT ALL TIMES. BED ALA RM SET FOR PT SAFETY. NO SIGNS OF ANY ACUTE DISTRESS NOTED. RE-ORIENTED NEEDED. ENDORSE TO AM NURSE FOR CONTINUITY OF CARE.
[2018-07-27 08:00] VITALS: BP 131/68
[2018-07-27] MEDS: ASPIRIN 81 MG TAB.CHEW PO SCH (08:20)
[2018-07-27] MEDS: FLUCONAZOLE (100 MG) 100 MG TABLET PO SCH (08:20)
[2018-07-27] MEDS: METOPROLOL TARTRATE 25 MG TABLET PO SCH ×2 (08:20→20:36)
[2018-07-27 16:12] VITALS: BP 159/78
--- NOTE | 2018-07-27 19:37 | NUR ---
PT AWAKE AND CONFUSED, ORIENTED X1 . BREATHING UNLABORED ON ROOM AIR. IV TO LFA #22 INFUSING NS AT 100 ML/HR. SAFETY PRECAUTIONS OBSERVED. CALL LIGHT WITHIN REACH.
--- NOTE | 2018-07-27 19:38 | NUR ---
MS RN NOTES RECEIVED ON BED A/O X1,FORGETFUL,SPEAK AMHARIC WITH LITTLE PUERTO RICAN,DVT PUMP IN USED FOR DVT PROHYLAXIS.NOTED SACRAL AND BREAST FOLD REDNESS MANAGE WITH REMEDY SKIN BARRIER.WITH IVF NS AT 100ML/HR RATE.SITE PATENT ON LFA. CALL LIGHT IN REACH,NEEDS ANTICIPATED.
--- NOTE | 2018-07-27 19:41 | NUR ---
VOCATIONAL EDUCATION TEACHER NOTES RECEIVED ON BED WITH HOB ELEVATED.WITH HARD OF HEARING ON BOTH EARS,WITH HEARING AID X2.NO IV ACCESS,OK WITH MD PER REPORT BY DAY NURSE MESFIN.NOTED SKIN DISCOLORATION ON RIGHT HAND.DENIES CHEST PAIN.CALL LIGHT IN REACH,NEEDS ANTICIPATED. Addendum: 07/28/18 at 0328 by MARJORIE WELLS RN NOTES NOT INTENDED FOR THIS PATIENT
[2018-07-27 20:00] VITALS: BP 164/80
--- NOTE | 2018-07-27 21:30 | NUR ---
MS RN NOTES BP 164/80,DUE LOPRESSOR 50MG PO GIVEN EARLY .DENIES HEADACHE,NO CHEST PAIN.
[2018-07-27] MEDS: ATORVASTATIN 10 MG TABLET PO SCH (21:37)
[2018-07-28] MEDS: IV NS 0.9% 1,000 ML IV PRN (02:01)
[2018-07-28 04:00] VITALS: BP 108/58
[2018-07-28] MEDS: BLOOD SUGAR DIAGNOSTIC 1 EACH STRIP IN SCH ×2 (05:21→12:05)
[2018-07-28] MEDS: INSULIN REGULAR, HUMAN 100 UNIT/ML 3 ML VIAL SQ PRN ×2 (05:23→12:13)
--- NOTE | 2018-07-28 06:00 | NUR ---
MS RN NOTES ACCU-CHECK BLOOD SUGAR CHECKED 136,COVERED WITH HUMULIN R 2 UNITS PER MILD SLIDING SCALE.
--- NOTE | 2018-07-28 06:01 | NUR ---
MS RN NOTES ON BED SLEEPING,AROUSABLE TO VERBAL STIMULI,NO SOB.IVF INFUSING WELL ON LFA VIA IV PUMP.REPOSITION PER PROTOCOL.AWAITING PLACAMENT AT SNF PER DAUGHTER REQUEST,WANTS TO SPEAK WITH ZACH JACKSON,IN NO ACUTE DISTRESS.WILL ENDORSE TO DAY NURSE FOR JOCELYN
--- NOTE | 2018-07-28 07:30 | NUR ---
RN Opening Note Patient currently asleep, resting in bed but easily arousable to name. Alert and oriented x 2-3, able to make needs known. Primarily Yi speaking, some Occitan spoken. Does not complain of pain or discomfort at this time. Respirations even and unlabored, saturating at 98% on room air. Peripheral IV to the left forearm 22 gauge, intact, patent and infusing NS at 100 ml/hr. Safety and fall precautions in place: bed in lowest and locked postion, side rails up x2, bed alarm on, call light and personal possessions within reach. Reviewed safety precautions and plan of care with patient, verbalized understanding. Will continue to monitor and intervene as needed.
[2018-07-28 08:00] VITALS: BP 142/79
[2018-07-28] MEDS: ASPIRIN 81 MG TAB.CHEW PO SCH (08:29)
[2018-07-28] MEDS: FLUCONAZOLE (100 MG) 100 MG TABLET PO SCH (08:29)
[2018-07-28] MEDS: METOPROLOL TARTRATE 25 MG TABLET PO SCH (08:29)
[2018-07-28 15:30] VITALS: BP 160/73
--- NOTE | 2018-07-28 16:00 | NUR ---
tone artist apprentice Note Patient discharged home in stable condition via EMS transport, DPOA and family member Brooklynn Pavon notified of discharge. digital communications manager and family arranged for EMS transport to the family's private home. Alert and oriented x 2-3, able to make needs known. Primarily Kinyarwanda speaking, some Icelandic spoken. Does not complain of pain or discomfort at this time. Respirations even and unlabored, saturating at 98% on room air. Vital signs stable. Peripheral IV to the left forearm 22 gauge, removed with catheter tip intact. No redness, swelling or inflammation to the site noted. Skin assessment completed and photos in chart. ID band removed. Personal belongings accounted for, verified with family and signed off on belongings form (copy in chart). Discharge instructions and Exitcare provided to both the patient in person, and with Brooklynn (family) over the phone); discharge packet given to EMS for transport. LEONARDO Bolton and LEONARDO Espana signed discharge instructions as verification of information given to DPOA over the phone.
== END 2018-07-28 16:00 | disposition home or self-care (01) | DRG 689 ==
LOC: ER 21:49 → MED 23:28
PROVIDERS: ADMIT Internal Medicine; ATTEND Internal Medicine
DX: N39.0 Urinary tract infection, site not specified (principal); G92 Toxic encephalopathy; E87.1 Hypo-osmolality and hyponatremia; D68.59 Other primary thrombophilia; E87.2 Acidosis; I69.354 Hemiplegia and hemiparesis following cerebral infarction affecting left non-dominant side; B49 Unspecified mycosis; E11.9 Type 2 diabetes mellitus without complications; I10 Essential (primary) hypertension; F03.90 Unspecified dementia, unspecified severity, without behavioral disturbance, psychotic disturbance, mood disturbance, and anxiety; Z88.0 Allergy status to penicillin; Z79.84 Long term (current) use of oral hypoglycemic drugs; Z79.82 Long term (current) use of aspirin; Z79.899 Other long term (current) drug therapy; B96.89 Other specified bacterial agents as the cause of diseases classified elsewhere; E86.1 Hypovolemia; R13.10 Dysphagia, unspecified; I69.391 Dysphagia following cerebral infarction; I69.320 Aphasia following cerebral infarction; E78.5 Hyperlipidemia, unspecified; Z74.09 Other reduced mobility; Z82.49 Family history of ischemic heart disease and other diseases of the circulatory system
CPT/HCPCS: 36415; 70450-TC; 71045-TC; 80048-TC; 80053-TC; 80061-TC; 81000-TC; 82247-TC; 82248-TC; 82962-TC; 83605-TC; 83735-TC; 83921; 84100-TC; 84443-TC; 84484-TC; 85025-TC; 85730-TC; 87040-TC; 87081-TC; 87086-TC; G0378; J0696; J1815; J3475; J7030; J7060

== ENCOUNTER 2018-11-23 15:03 | Inpatient (IN) | payer MEDICARE, MEDICAID ==
[~2018-11-23] VITALS: Ht 152.4 cm; Wt 58.1 kg
[~2018-11-23 15:03] MED LIST changes: -ACID1TAB14 PO; -LEVO500T90 PO; -METO25TA20 PO
[2018-11-23] MEDS ORDERED: DOCU-141 PO (15:42)
[2018-11-23 15:53] LABS: BASOPHILS # (AUTO) 0.1 /CMM (0.0-0.2); BASOPHILS % (AUTO) 0.8 % (0.0-2.0); EOSINOPHILS % (AUTO) 2.6 % (0.0-6.0); HEMATOCRIT 38 % (33-45); HEMOGLOBIN 12.6 g/dL (11.5-14.8); LYMPHOCYTES # (AUTO) 1.8 /CMM (0.8-4.8); LYMPHOCYTES % (AUTO) 16.8 % (20.0-44.0); MEAN CORPUSCULAR HGB CONC 33 g/dl (31.0-36.0); MEAN CORPUSCULAR VOLUME 88 fL (82-100); MONOCYTES # (AUTO) 0.6 /CMM (0.1-1.30); MONOCYTES % (AUTO) 5.2 % (2.0-12.0); NEUTROPHILS % (AUTO) 74.6 % (43.0-81.0); PLATELET COUNT (AUTO) 453 /CMM (150-450); RED BLOOD CELL COUNT(AUTO) 4.33 MIL/uL (4.0-5.2); WHITE BLOOD COUNT (AUTO) 10.8 K/uL (4.3-11.0)
[2018-11-23 16:02] LABS: CALCIUM, SERUM 8.9 mg/dL (8.5-10.1); CARBON DIOXIDE 29 mmol/L (21-32); CHLORIDE 99 mmol/L (98-107); CREATININE 0.7 mg/dL (0.6-1.3); GLUCOSE 163 mg/dL (74-106); POTASSIUM 3.7 mmol/L (3.5-5.1); SODIUM SERUM 140 mmol/L (136-145); UREA NITROGEN, BLOOD 9 mg/dL (7-18)
[2018-11-23 16:15] LABS: ALANINE AMINOTRANSFERASE 16 U/L (12-78); ALBUMIN 3.7 g/dL (3.4-5.0); ALKALINE PHOSPHATASE 114 U/L (46-116); ASPARTATE AMINOTRANSFERASE 13 U/L (15-37); B-TYPE NATRIURETIC PEPTIDE 143 PG/ML (0-125); BILIRUBIN,TOTAL 0.4 mg/dL (0.2-1.0); TOTAL PROTEIN, SERUM 8.1 g/dL (6.4-8.2)
[2018-11-23] MEDS ORDERED: IV NS 0.9% 1,000 ML BAG IV ONE ×2 (17:00→18:00)
[2018-11-23 17:30] LABS: BILIRUBIN,URINE Negative (NEGATIVE); BLOOD, URINE Moderate Ery/uL (NEGATIVE); COLOR,URINE Yellow (YELLOW); KETONES,URINE Negative (NEGATIVE); LEUKOCYTE ESTERASE ,URINE Large (NEGATIVE); NITRITE, URINE Positive (NEGATIVE); PH,URINE 5.5 (5.0-8.0); PROTEIN,URINE 30 mg/dl (NEGATIVE); UGLUCOSE Negative (NEGATIVE); UROBILINOGEN,URINE 0.2 EU/dL (0.2)
[2018-11-23 17:31] LABS: APPEARANCE,URINE CLOUDY (CLEAR); BACTERIA,URINE 1+ /HPF (None Seen); SQUAMOUS EPITHELIAL CELL,UR Few /HPF (None Seen)
[2018-11-23 17:32] LABS: WBC,URINE 21-50 /HPF (0-3)
[2018-11-23] MEDS ORDERED: AZTREONAM 1 G in IV NS 0.9% 100 ML IV ONE (18:00)
[2018-11-23] MEDS ORDERED: LEVOFLOXACIN 750 MG /D5W 150ML 150 ML IV ONE (18:00)
[2018-11-23] MEDS ORDERED: ACETAMINOPHEN ES 500 MG TABLET ONE (18:53)
[2018-11-23] MEDS ORDERED: ACETAMINOPHEN ES 500 MG TABLET PO ONE (19:30)
[2018-11-23 20:00] VITALS: BP 147/79
[2018-11-23] MEDS ORDERED: MAGNESIUM HYDROXIDE 30 ML UDC PO PRN (20:00)
[2018-11-23] MEDS ORDERED: HYDROCODONE/APAP 5/325MG 1 EACH TABLET PO PRN (20:00)
[2018-11-23] MEDS ORDERED: ACETAMINOPHEN 325 MG TABLET PO PRN (20:00)
[2018-11-23] MEDS ORDERED: DEXTROSE 50%-WATER 50 ML DISP.SYRIN IV PRN (20:00)
[2018-11-23] MEDS ORDERED: Z GUARD REMEDY 2 OZ OINT TP PRN (20:00)
[2018-11-23] MEDS ORDERED: ONDANSETRON HCL/PF 4 MG/2 ML VIAL IVP PRN (20:00)
[2018-11-23] MEDS ORDERED: MAG HYDROX/AL HYDROX/SIMETH 30 ML UDC PO PRN (20:00)
[2018-11-23] MEDS: DOCUSATE SODIUM 100 MG CAPSULE PO SCH (22:19)
[2018-11-23] MEDS: METOPROLOL TARTRATE 25 MG TABLET PO SCH (22:19)
[2018-11-23] MEDS: BLOOD SUGAR DIAGNOSTIC 1 EACH STRIP IN SCH (22:20)
[2018-11-23] MEDS: ATORVASTATIN 10 MG TABLET PO SCH (22:20)
[2018-11-23] MEDS: ZOLPIDEM TARTRATE 5 MG TABLET PO PRN (22:20)
[2018-11-23] MEDS: IV NS 0.9% 1,000 ML IV PRN (22:22)
[2018-11-23] MEDS: INSULIN REGULAR, HUMAN 100 UNIT/ML 3 ML VIAL SQ PRN (23:02)
[2018-11-24 04:00] VITALS: BP 154/77
[2018-11-24 06:43] LABS: BASOPHILS % (AUTO) 0.5 % (0.0-2.0); EOSINOPHILS % (AUTO) 1.3 % (0.0-6.0); HEMATOCRIT 36 % (33-45); HEMOGLOBIN 11.9 g/dL (11.5-14.8); LYMPHOCYTES # (AUTO) 1.4 /CMM (0.8-4.8); LYMPHOCYTES % (AUTO) 15.9 % (20.0-44.0); MEAN CORPUSCULAR HGB CONC 33 g/dl (31.0-36.0); MEAN CORPUSCULAR VOLUME 86 fL (82-100); MONOCYTES # (AUTO) 0.4 /CMM (0.1-1.30); NEUTROPHILS # (AUTO) 7.1 /CMM (1.8-8.9); NEUTROPHILS % (AUTO) 78.3 % (43.0-81.0); PLATELET COUNT (AUTO) 401 /CMM (150-450); RED BLOOD CELL COUNT(AUTO) 4.14 MIL/uL (4.0-5.2); WHITE BLOOD COUNT (AUTO) 9.1 K/uL (4.3-11.0)
[2018-11-24 06:46] LABS: CALCIUM, SERUM 8.5 mg/dL (8.5-10.1); CARBON DIOXIDE 27 mmol/L (21-32); CHLORIDE 101 mmol/L (98-107); CREATININE 0.6 mg/dL (0.6-1.3); GLUCOSE 203 mg/dL (74-106); MAGNESIUM 1.6 mg/dL (1.8-2.4); PHOSPHORUS 2.2 mg/dL (2.5-4.9); POTASSIUM 3.7 mmol/L (3.5-5.1); SODIUM SERUM 140 mmol/L (136-145); UREA NITROGEN, BLOOD 9 mg/dL (7-18)
[2018-11-24 06:52] LABS: CHOLESTEROL 117 mg/dL (<200); HDL CHOLESTEROL 31 mg/dL (40-60); LDL 73 mg/dL (0-99); THYROID STIMULATING HORMONE 0.732 uIU/mL (0.358-3.74); TRIGLYCERIDES 148 mg/dL (30-150)
[2018-11-24] MEDS: BLOOD SUGAR DIAGNOSTIC 1 EACH STRIP IN SCH ×4 (07:30→21:44)
[2018-11-24] MEDS: PANTOPRAZOLE 40 MG TABLET.DR PO SCH (07:30)
[2018-11-24 08:00] VITALS: BP 168/82
[2018-11-24] MEDS: METOPROLOL TARTRATE 25 MG TABLET PO SCH ×2 (09:00→21:43)
[2018-11-24] MEDS: LOSARTAN POTASSIUM 50 MG TABLET PO SCH (09:00)
[2018-11-24] MEDS: INSULIN REGULAR, HUMAN 100 UNIT/ML 3 ML VIAL SQ PRN ×2 (09:28→22:18)
[2018-11-24] MEDS ORDERED: Magnesium 1GM/D5W 100ML PREMIX 100 ML IV SCH (11:34)
[2018-11-24] MEDS: Magnesium 1GM/D5W 100ML PREMIX 100 ML IV SCH ×2 (11:41→13:24)
[2018-11-24] MEDS: IV NS 0.9% 1,000 ML IV PRN (11:54)
[2018-11-24] MEDS: NEUTRA PHOS 1 POWD.PACKET PO SCH ×2 (13:39→16:38)
[2018-11-24 16:00] VITALS: BP 181/72
[2018-11-24] MEDS: LEVOFLOXACIN 750 MG /D5W 150ML 750 MG in PREMIX 1 EA IV SCH (17:46)
[2018-11-24 20:00] VITALS: BP 158/91
[2018-11-24] MEDS: DOCUSATE SODIUM 100 MG CAPSULE PO SCH (21:42)
[2018-11-24] MEDS: ATORVASTATIN 10 MG TABLET PO SCH (21:43)
[2018-11-24] MEDS: ZOLPIDEM TARTRATE 5 MG TABLET PO PRN (21:43)
[2018-11-25] MEDS: IV NS 0.9% 1,000 ML IV PRN (04:14)
[2018-11-25 06:28] LABS: BASOPHILS % (AUTO) 0.5 % (0.0-2.0); EOSINOPHILS % (AUTO) 0.4 % (0.0-6.0); HEMATOCRIT 35 % (33-45); HEMOGLOBIN 11.8 g/dL (11.5-14.8); LYMPHOCYTES # (AUTO) 1.7 /CMM (0.8-4.8); LYMPHOCYTES % (AUTO) 18.8 % (20.0-44.0); MEAN CORPUSCULAR HGB CONC 33 g/dl (31.0-36.0); MEAN CORPUSCULAR VOLUME 85 fL (82-100); MONOCYTES # (AUTO) 0.7 /CMM (0.1-1.30); MONOCYTES % (AUTO) 7.4 % (2.0-12.0); NEUTROPHILS # (AUTO) 6.7 /CMM (1.8-8.9); NEUTROPHILS % (AUTO) 72.9 % (43.0-81.0); PLATELET COUNT (AUTO) 415 /CMM (150-450); RED BLOOD CELL COUNT(AUTO) 4.15 MIL/uL (4.0-5.2); WHITE BLOOD COUNT (AUTO) 9.3 K/uL (4.3-11.0)
[2018-11-25 06:50] LABS: CALCIUM, SERUM 8.4 mg/dL (8.5-10.1); CARBON DIOXIDE 27 mmol/L (21-32); CHLORIDE 100 mmol/L (98-107); CREATININE 0.6 mg/dL (0.6-1.3); GLUCOSE 175 mg/dL (74-106); MAGNESIUM 2.2 mg/dL (1.8-2.4); POTASSIUM 3.6 mmol/L (3.5-5.1); SODIUM SERUM 138 mmol/L (136-145); UREA NITROGEN, BLOOD 14 mg/dL (7-18)
[2018-11-25] MEDS: INSULIN REGULAR, HUMAN 100 UNIT/ML 3 ML VIAL SQ PRN ×4 (07:44→21:08)
[2018-11-25] MEDS: BLOOD SUGAR DIAGNOSTIC 1 EACH STRIP IN SCH ×4 (07:47→21:01)
[2018-11-25 08:00] VITALS: BP 143/74
[2018-11-25] MEDS: LOSARTAN POTASSIUM 50 MG TABLET PO SCH (08:46)
[2018-11-25] MEDS: PANTOPRAZOLE 40 MG TABLET.DR PO SCH (08:46)
[2018-11-25] MEDS: METOPROLOL TARTRATE 25 MG TABLET PO SCH ×2 (08:47→21:04)
[2018-11-25] MEDS: NEUTRA PHOS 1 POWD.PACKET PO SCH (08:52)
[2018-11-25 16:00] VITALS: BP_SYST 100; BP_SYST 98; BP_DIAS 53
[2018-11-25] MEDS: LEVOFLOXACIN 750 MG /D5W 150ML 750 MG in PREMIX 1 EA IV SCH (18:57)
[2018-11-25 20:00] VITALS: BP 141/70
[2018-11-25] MEDS: DOCUSATE SODIUM 100 MG CAPSULE PO SCH (21:03)
[2018-11-25] MEDS: ATORVASTATIN 10 MG TABLET PO SCH (21:04)
[2018-11-25] MEDS: ZOLPIDEM TARTRATE 5 MG TABLET PO PRN (21:08)
[2018-11-26] MEDS: IV NS 0.9% 1,000 ML IV PRN (02:36)
[2018-11-26 04:01] VITALS: BP 130/52
[2018-11-26] MEDS: BLOOD SUGAR DIAGNOSTIC 1 EACH STRIP IN SCH ×2 (07:30→11:47)
[2018-11-26] MEDS: INSULIN REGULAR, HUMAN 100 UNIT/ML 3 ML VIAL SQ PRN ×2 (07:30→11:51)
[2018-11-26 08:00] VITALS: BP 140/73
[2018-11-26 08:10] VITALS: BP 140/73
[2018-11-26] MEDS: METOPROLOL TARTRATE 25 MG TABLET PO SCH (08:10)
[2018-11-26] MEDS: LOSARTAN POTASSIUM 50 MG TABLET PO SCH (08:10)
[2018-11-26] MEDS: PANTOPRAZOLE 40 MG TABLET.DR PO SCH (08:10)
== END 2018-11-26 14:32 | DRG 689 ==
LOC: ER 15:04 → TELE1 19:48 → MEDSG1 23:09
PROVIDERS: ADMIT Hospitalist; ATTEND Internal Medicine
DX: N39.0 Urinary tract infection, site not specified (principal); G93.41 Metabolic encephalopathy; E87.2 Acidosis; I10 Essential (primary) hypertension; Z86.73 Personal history of transient ischemic attack (TIA), and cerebral infarction without residual deficits; F03.90 Unspecified dementia, unspecified severity, without behavioral disturbance, psychotic disturbance, mood disturbance, and anxiety; E83.42 Hypomagnesemia; B96.1 Klebsiella pneumoniae [K. pneumoniae] as the cause of diseases classified elsewhere; E78.5 Hyperlipidemia, unspecified; E11.9 Type 2 diabetes mellitus without complications; Z87.440 Personal history of urinary (tract) infections; E83.39 Other disorders of phosphorus metabolism; Z88.0 Allergy status to penicillin
CPT/HCPCS: 36415; 71045-TC; 80048-TC; 80061-TC; 80076-TC; 81000-TC; 82140-TC; 82962-TC; 83605-TC; 83735-TC; 83880; 84100-TC; 84443-TC; 84484-TC; 85025-TC; 85730-TC; 87040-TC; 87081-TC; 87086-TC; 87186-TC; 97110-TC; 97116-TC; 97530-TC; A4216; G0378; J1815; J1956; J3475; J3490; J7030; J7050

== ENCOUNTER 2019-08-20 15:38 | Inpatient (IN) | payer MEDICARE, MEDICAID ==
[~2019-08-20] VITALS: Ht 152.4 cm; Wt 63.0 kg
[~2019-08-20 15:38] MED LIST changes: -ASPI-1169 PO; +DOCU-141 PO; -GLIM4TAB2 PO; +GLIM4TAB37 PO
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
[2019-08-20] MEDS ORDERED: MAGN400O6 PO (17:08)
[2019-08-20] MEDS ORDERED: INSU100V3 SQ (17:08)
[2019-08-20] MEDS ORDERED: ACET-868 PO (17:08)
[2019-08-20] MEDS ORDERED: CALC-7 PO (17:08)
[2019-08-20] MEDS ORDERED: MAG30ORA PO (17:08)
[2019-08-20 17:36] LABS: BASOPHILS # (AUTO) 0.1 /CMM (0.0-0.2); BASOPHILS % (AUTO) 0.7 % (0.0-2.0); EOSINOPHILS % (AUTO) 2.5 % (0.0-6.0); HEMATOCRIT 34 % (33-45); HEMOGLOBIN 10.9 g/dL (11.5-14.8); LYMPHOCYTES # (AUTO) 2.1 /CMM (0.8-4.8); LYMPHOCYTES % (AUTO) 23.5 % (20.0-44.0); MEAN CORPUSCULAR HGB CONC 33 g/dl (31.0-36.0); MEAN CORPUSCULAR VOLUME 86 fL (82-100); MONOCYTES # (AUTO) 0.7 /CMM (0.1-1.30); MONOCYTES % (AUTO) 7.9 % (2.0-12.0); NEUTROPHILS % (AUTO) 65.4 % (43.0-81.0); PLATELET COUNT (AUTO) 364 /CMM (150-450); RED BLOOD CELL COUNT(AUTO) 3.92 MIL/uL (4.0-5.2); WHITE BLOOD COUNT (AUTO) 9.1 K/uL (4.3-11.0)
[2019-08-20 17:38] LABS: APPEARANCE,URINE Cloudy (CLEAR); BILIRUBIN,URINE Negative (NEGATIVE); BLOOD, URINE Trace-intact Ery/uL (NEGATIVE); COLOR,URINE Yellow (YELLOW); KETONES,URINE Negative (NEGATIVE); LEUKOCYTE ESTERASE ,URINE Negative (NEGATIVE); NITRITE, URINE Negative (NEGATIVE); PROTEIN,URINE Negative (NEGATIVE); UGLUCOSE Negative (NEGATIVE); UROBILINOGEN,URINE 0.2 EU/dL (0.2)
[2019-08-20 17:41] LABS: CALCIUM, SERUM 9.7 mg/dL (8.5-10.1); CREATININE 0.9 mg/dL (0.6-1.3); POTASSIUM 3.8 mmol/L (3.5-5.1)
[2019-08-20 17:47] LABS: ALBUMIN 3.7 g/dL (3.4-5.0); BILIRUBIN,DIRECT 0.1 mg/dL (0.0-0.2); BILIRUBIN,TOTAL 0.3 mg/dL (0.2-1.0); TOTAL PROTEIN, SERUM 8.1 g/dL (6.4-8.2)
--- NOTE | 2019-08-20 17:48 | NUR ---
MOVE SHEET SUBMITTED AND GOT 115-2 BED
[2019-08-20 17:49] LABS: BACTERIA,URINE Few /HPF (None Seen); SQUAMOUS EPITHELIAL CELL,UR Few /HPF (None Seen); WBC,URINE F /HPF (0-3)
--- NOTE | 2019-08-20 18:19 | NUR ---
DAUGHTER AT BEDSIDE, STATED PATIENT HAS BEEN COMPLAINING OF DIFFICULTY SWALLOWING, DR. CADENA MADE AWARE, AND WILL RECOMMEND ST EVAL ON ADMISSION.
[2019-08-20] MEDS ORDERED: MAG HYDROX/AL HYDROX/SIMETH 30 ML UDC PO PRN ×2 (19:00)
[2019-08-20] MEDS ORDERED: Z GUARD REMEDY 2 OZ OINT TP PRN (19:00)
[2019-08-20] MEDS ORDERED: ONDANSETRON HCL/PF 4 MG/2 ML VIAL IVP PRN (19:00)
[2019-08-20] MEDS ORDERED: INSULIN REGULAR, HUMAN 100 UNIT/ML 3 ML VIAL SQ PRN (19:00)
[2019-08-20] MEDS ORDERED: ACETAMINOPHEN 325 MG TABLET PO PRN ×2 (19:00)
[2019-08-20] MEDS ORDERED: MAGNESIUM HYDROXIDE 30 ML UDC PO PRN ×2 (19:00)
[2019-08-20] MEDS ORDERED: HYDROCODONE/APAP 5/325MG 1 EACH TABLET PO PRN (19:00)
[2019-08-20] MEDS ORDERED: DEXTROSE 50%-WATER 50 ML DISP.SYRIN IV PRN (19:00)
--- NOTE | 2019-08-20 19:04 | NUR ---
report given to julieta ferrell for cristofer.
--- NOTE | 2019-08-20 19:18 | NUR ---
patient transferred to room 115-2 via acls protocol. No distress noted.
--- NOTE | 2019-08-20 19:40 | NUR ---
C DEVELOPER NOTES PATIENT RECEIVED FROM ER ACCOMPANIED BY ER STAFF AND DAUGHTER VIA GURNEY. PATIENT A/O X 1-2. IV LOCATED ON R AC # 20 PATENT AND INTACT. VITALS TAKEN. ALL BELONGINGS ACCOUNTED FOR. SKIN ASSESSMENT DONE. ORIENTEDTO STAFF AND ROOM. WILL CONTINUE TO MONITOR.
[2019-08-20 20:00] VITALS: BP 135/83
[2019-08-20] MEDS: IV NS 0.9% 1,000 ML IV PRN (20:18)
[2019-08-20] MEDS: DOCUSATE SODIUM 100 MG CAPSULE PO SCH (21:19)
[2019-08-20] MEDS: ATORVASTATIN 10 MG TABLET PO SCH (21:19)
[2019-08-20] MEDS: METOPROLOL TARTRATE 25 MG TABLET PO SCH (21:20)
[2019-08-20] MEDS: LOSARTAN POTASSIUM 50 MG TABLET PO SCH (21:28)
[2019-08-20] MEDS: BLOOD SUGAR DIAGNOSTIC 1 EACH STRIP VI SCH (22:20)
[2019-08-20 23:11] VITALS: BP 135/83
[2019-08-21] VITALS (7 sets, daily range): BP systolic 35–156; BP diastolic 53–86
[2019-08-21] MEDS: BLOOD SUGAR DIAGNOSTIC 1 EACH STRIP VI SCH ×4 (06:50→22:28)
[2019-08-21] MEDS: *INSULIN REGULAR(HUMULIN R)HUM 100 UNIT/ML VIAL SQ PRN (06:56)
--- NOTE | 2019-08-21 07:30 | NUR ---
RN OPENING NOTES PT IS RESTING IN BED IN SEMI GAYLE POSITION WITH EQUAL CHEST RISE AND FALL BILATERALLY. BED IS LOCEKD AND IN LOWEST POSITION WITH X3 SIDE RAILS UP. PER FUEL SYSTEM MAINTENANCE WORKER REPORT PT HAS A RIGHT IV GAUGE 20 RUNNING NS AT 75 MLS/HR. PT IS ABLE TO FOLLOW COMMANDS PER REPORT. WILL CONTINUE TO MONITOR. PT IS SR 86 HR.
--- NOTE | 2019-08-21 07:34 | NUR ---
ELECTROPLATER AUTOMATIC CLOSING NOTES PATIENT CURRENTLY RESTING IN BED A/O X 1-2 ABLE TO FOLLOW COMMANDS. ON 2L OF O2 VIA NC NO SO NOTED BREATHING EVEN AND UNLABORED. IV LOCATED ON R AC #20 RUNNING NS @ 75. PATIENT WAS KEPT CLEEAN AND DRY THROUGHOUT THE NIGHT. ALL NEEDS ATTENDED TO. WILL ENDORSE TO ONCOMING SHIFT ABOUT JOCELYN.
[2019-08-21 07:59] LABS: BASOPHILS % (AUTO) 0.6 % (0.0-2.0); HEMATOCRIT 33 % (33-45); HEMOGLOBIN 10.9 g/dL (11.5-14.8); LYMPHOCYTES # (AUTO) 1.4 /CMM (0.8-4.8); LYMPHOCYTES % (AUTO) 18.9 % (20.0-44.0); MEAN CORPUSCULAR HGB CONC 33 g/dl (31.0-36.0); MEAN CORPUSCULAR VOLUME 84 fL (82-100); MONOCYTES # (AUTO) 0.4 /CMM (0.1-1.30); MONOCYTES % (AUTO) 5.8 % (2.0-12.0); NEUTROPHILS # (AUTO) 5.3 /CMM (1.8-8.9); NEUTROPHILS % (AUTO) 72.7 % (43.0-81.0); PLATELET COUNT (AUTO) 343 /CMM (150-450); RED BLOOD CELL COUNT(AUTO) 3.96 MIL/uL (4.0-5.2); WHITE BLOOD COUNT (AUTO) 7.3 K/uL (4.3-11.0)
[2019-08-21 09:01] LABS: CALCIUM, SERUM 8.8 mg/dL (8.5-10.1); CREATININE 0.7 mg/dL (0.6-1.3); MAGNESIUM 1.5 mg/dL (1.8-2.4); POTASSIUM 3.4 mmol/L (3.5-5.1)
[2019-08-21] MEDS: CALCIUM CARB 250MG /VITAMIN D 1 UDTAB PO SCH ×2 (09:28→17:08)
[2019-08-21] MEDS: LOSARTAN POTASSIUM 50 MG TABLET PO SCH ×2 (09:29→17:08)
[2019-08-21] MEDS: METOPROLOL TARTRATE 25 MG TABLET PO SCH ×2 (09:29→21:00)
--- NOTE | 2019-08-21 12:10 | NUR ---
ORTHOSTATIC BLOOD PRESSURE DONE BY GUY STOREY. LAYING DOWN: 139/78 , 102 HR SITTIN/87 ,105HR
--- NOTE | 2019-08-21 19:38 | NUR ---
BRASS SORTER OPENING RECEIVED PATIENT A/OX1 AND CONFUSED. IS ABLE TO STATE HER NAME BUT NOT TIME OR PLACE. NO SIGN OF DISTRESS AT THE MOMENT. PATIENT CURRENTLY ON 2L OF O2 WITH NO SIGNS OF ANY DISTRESS. ON THE MONITOR SHOWING SINU RHYTHM. HAS A RAC #20 NO FLUIDS RUNNING AT THE MOMENT. BED IS ELEVATED RAILS X2 ARE UP. BED ALARM ON. ALL SAFETY PRECAUTIONS APPLIED. WILL CONTINUE TO MONITOR PATIENT FOR JOCELYN.
--- NOTE | 2019-08-21 20:09 | NUR ---
RN CLOSING NOTES PT IS RESTING IN BED IN SEMI GAYLE POSITION WITH EQUAL CHEST RISE AND FALL BILATERALLY. BED IS LOCKED AND IN LOWEST POSITION WITH X3 SIDE RAILS UP. PER MAGNETIC TESTER REPORT PT HAS A RIGHT IV GAUGE 20 RUNNING NS AT 75 MLS/HR. PT IS ABLE TO FOLLOW COMMANDS PER REPORT.REPORT GIVEN TO MAGNETIC TESTER RN FOR JOCELYN. PT IS SR 85 HR.
[2019-08-21] MEDS: ATORVASTATIN 10 MG TABLET PO SCH (22:00)
[2019-08-21] MEDS: DOCUSATE SODIUM 100 MG CAPSULE PO SCH (22:00)
--- NOTE | 2019-08-21 22:01 | NUR ---
DUAL RATE DEALER NOTE DID NOT ADMINISTER SCHEDULED METROPOLOL, RECHECKED PATIENT BP WAS 108/57 HR OF 102. PATIENT REFUSED TO TAKE DOCUSATE AND ATORVASTATIN. PATIENT REFUSED TO OPEN MOUTH. PATIENT SEEMS DROWSY AT THE MOMENT WILL CONTINUE TO MONITOR PATIENT.
[2019-08-21] MEDS ORDERED: IV NS 0.9% 500 ML IV ONE (23:30)
[2019-08-22] VITALS: BP 90/49
[2019-08-22] MEDS: IV NS 0.9% 1,000 ML IV PRN ×2 (00:43→13:14)
[2019-08-22 04:00] VITALS: BP 99/53
--- NOTE | 2019-08-22 07:30 | NUR ---
RN OPENING NOTE: RECEIVED PATIENT IN BED AND ASLEEP, EASY TO AROUSE. ALERT AND ORIENTED X3. ON CONT. O2 VIA NC @ 2LPM AND TOLERATING WELL. NO SOB, NO DISTRESS NOTED. BREATHING EQUAL AND UNLABORED. SATURATION >92%. NO PAIN REPORTED. IV SITE PATENT, CLEAN AND DRY. PATIENT APPEARS WEAK AND FATIGUED AND WAS REPORTED WITH LOWER BP ON THE START OF PREVIOUS SHIFT. CALL LIGHT IN REACH. BED LOCKED, LOW AND AT SEMI-GAYLE'S POSITION. SIDE RAILS UP X3. NEEDS ANTICIPATED. SAFETY ENSURED AND OBSERVED. WILL CONTINUE TO MONITOR.
--- NOTE | 2019-08-22 07:49 | NUR ---
CLEANER INDUSTRIAL CLOSING NOTE PATIENT ALTERED MENTAL STATUS HAS IMPROVED SINCE LEARNING AND DEVELOPMENT SPECIALIST. PATIENT SBP WAS ELEVATED TO 100'S. PATIENT IS SINUS RHYTHM ON THE MONITOPR WITH HR IN THE 90'S. IV ACCESS ON THE RAC IS PATENT WITH NS INFUSING AT 75CC/HR. PATIENT OPENED EYES AND RESPONDED TO MY QUESTIONS. ALL SAFETY PRECAUTIONS HAVE BEEN APPLIED. ENDORSED PATIENT AND ALL INFORMATION TO MORNING SHIFT NURSE FOR JOCELYN.
[2019-08-22 08:00] VITALS: BP 134/68
[2019-08-22] MEDS: BLOOD SUGAR DIAGNOSTIC 1 EACH STRIP VI SCH ×4 (10:08→22:45)
[2019-08-22] MEDS: CALCIUM CARB 250MG /VITAMIN D 1 UDTAB PO SCH ×2 (10:09→16:50)
[2019-08-22] MEDS: METOPROLOL TARTRATE 25 MG TABLET PO SCH ×2 (10:09→21:18)
[2019-08-22] MEDS: LOSARTAN POTASSIUM 50 MG TABLET PO SCH ×2 (10:10→16:50)
[2019-08-22 12:00] VITALS: BP 156/76
[2019-08-22 16:00] VITALS: BP 154/83
--- NOTE | 2019-08-22 16:00 | NUR ---
RN NOTE: DR. CARTER ORDERED REPEAT ST EVAL FOR PATIENT DUE TO COMPLAINT EXPRESSED BY PATIENT TO DAUGHTER THAT "IT HURTS WHEN IT SWALLOWS". ORDER NOTED AND CARRIED OUT.
[2019-08-22] MEDS: *INSULIN REGULAR(HUMULIN R)HUM 100 UNIT/ML VIAL SQ PRN ×2 (17:04→21:32)
[2019-08-22 20:00] VITALS: BP 152/83
[2019-08-22] MEDS: DOCUSATE SODIUM 100 MG CAPSULE PO SCH (21:19)
[2019-08-22] MEDS: ATORVASTATIN 10 MG TABLET PO SCH (21:19)
[2019-08-23] MEDS: IV NS 0.9% 1,000 ML IV PRN (03:31)
[2019-08-23 04:00] VITALS: BP 154/75
--- NOTE | 2019-08-23 06:47 | NUR ---
RN CLOSING NOTE: PATIENT IN BED AND ASLEEP. NO ACUTE CHANGES NOTED ON SHIFT, WAS ABLE TO SLEEP COMFORTABLY. O2 VIA NC @ 2LPM AND TOLERATING WELL. NO SOB, NO RESPIRATORY DISTRESS NOTED. NO PAIN NOTED. IV SITE PATENT, CLEAN AND DRY. CALL LIGHT IN REACH. BED LOCKED, LOW AND AT SEMI-GAYLE'S POSITION. SIDE RAILS UP X3. NEEDS ANTICIPATED. SAFETY ENSURED AND OBSERVED. WILL CONTINUE TO MONITOR AND ENDORSE TO AM SHIFT FOR JOCELYN.
[2019-08-23] MEDS ORDERED: CLONIDINE HCL 0.1 MG TABLET PO PRN (07:00)
[2019-08-23] MEDS: BLOOD SUGAR DIAGNOSTIC 1 EACH STRIP VI SCH ×3 (07:30→17:30)
[2019-08-23 08:00] VITALS: BP 140/77
[2019-08-23] MEDS: CALCIUM CARB 250MG /VITAMIN D 1 UDTAB PO SCH ×2 (09:33→18:31)
[2019-08-23] MEDS: LOSARTAN POTASSIUM 50 MG TABLET PO SCH ×2 (09:34→18:31)
[2019-08-23] MEDS: METOPROLOL TARTRATE 25 MG TABLET PO SCH (09:34)
[2019-08-23] MEDS: *INSULIN REGULAR(HUMULIN R)HUM 100 UNIT/ML VIAL SQ PRN (13:30)
--- NOTE | 2019-08-23 15:55 | NUR ---
appeared alert, followed basic commands, despite the fact of limited command of urdu, able to express her needs. Feeder, 100% both meals, still complained of sore throat when swallowing. NO ST saw the patient today , for eval. Seen by attending, dr Ryder, patient is discharged back to [facility]. Report given to Matilde, and all questions answer to satisfaction expected to be picked up by ambulance at 1900 this evening, by Orthoptist daughter Brooklynn informed of the discharge
[2019-08-23 16:00] VITALS: BP 141/78
[2019-08-23 18:31] VITALS: BP 141/78
--- NOTE | 2019-08-23 18:33 | NUR ---
when checked back of left foot, one big sol, , browish-colored, not opened. Called daughter Brooklynn to confirm, she did confirm the sol, no pics taken prior to discharge to [facility]
--- NOTE | 2019-08-23 19:45 | NUR ---
CALL MADE TO [facility] TO CONFIRM THEY WERE EXPECTING PATIENT. SPOKE WITH ELIZABET THEY ARE EXPECTING PATIENT AND SHE IS GOING TO BED 20 A. SHAD UNAVAILABLE BUT NUMBER LEFT FOR CALL BACK IF THEY HAVE ANY QUESTIONS.
--- NOTE | 2019-08-23 19:48 | NUR ---
PATIENT TRANSPORTED OFF UNIT WITH [facility] REPORT GIVEN TO GEE SHEIKH. PATIENT TRANSPORTED OFF UNIT VIA GURNEY.
== END 2019-08-23 20:21 | DRG 640 ==
LOC: ER 15:40 → TELE1 18:12 → MEDSG1 08-22 12:01
PROVIDERS: ADMIT Internal Medicine; ATTEND Internal Medicine
DX: E86.0 Dehydration (principal); N17.0 Acute kidney failure with tubular necrosis; G93.41 Metabolic encephalopathy; R53.1 Weakness; E11.9 Type 2 diabetes mellitus without complications; E78.5 Hyperlipidemia, unspecified; F03.90 Unspecified dementia, unspecified severity, without behavioral disturbance, psychotic disturbance, mood disturbance, and anxiety; I10 Essential (primary) hypertension; Z86.73 Personal history of transient ischemic attack (TIA), and cerebral infarction without residual deficits; E87.6 Hypokalemia; E83.42 Hypomagnesemia; D63.8 Anemia in other chronic diseases classified elsewhere; F41.9 Anxiety disorder, unspecified; F32.9 Major depressive disorder, single episode, unspecified; Z88.0 Allergy status to penicillin
CPT/HCPCS: 36415; 70450-TC; 80048-TC; 80076-TC; 81000-TC; 82962-TC; 83690-TC; 83735-TC; 84100-TC; 85025-TC; 87081-TC; 92521; 93307-TC; 97530-TC; G0378; J1815; J7030; J7040

== ENCOUNTER 2019-12-17 02:30 | Inpatient (IN) | payer MEDICARE, OTHER ==
[~2019-12-17] VITALS: Ht 182.9 cm; Wt 62.6 kg
[~2019-12-17 02:30] MED LIST changes: +ACET-868 PO; +CALC-7 PO; +INSU100V3 SQ; -LORA0.5T PO; +MAG30ORA PO; +MAGN400O6 PO
[2019-12-17] MEDS ORDERED: ACETAMINOPHEN 650 MG/SUPP.RECT RC ONE ×2 (02:43→03:00)
[2019-12-17] MEDS ORDERED: ACETAMINOPHEN 120 MG/SUPP.RECT RC ONE (02:43)
--- NOTE | 2019-12-17 02:59 | NUR ---
MARTINA FROM [facility] FOR ELEVATED TEMP; 101.2, TOLD PER REPORT. UPON ASSESSMENT TEMP 100.4 RECTALLY. ALSO PER REPORT PT IS USUALY AAOX2, NOW IS AAOX1; FOLLOWS COMMANDS. PLACED IN BED 7, ON MONITOR AND PULSE OX. RR EVEN AND UNLABORED; SAT 96% ON ROOM AIR. UPON ASSESSMENT PT LEFT HAND NOTED SLIGHTLY CONTRACTED. MD AT BEDSIDE FOR EVAL. NO ACUTE DISTRESS NOTED. PT RESPONDS TO ROMANIAN, WITH "SI, NO." WILL CONTINUE TO MONITOR, AWAITING MD ORDERS.
[2019-12-17] MEDS ORDERED: ACETAMINOPHEN 325 MG TABLET PO ONE (03:00)
--- NOTE | 2019-12-17 03:04 | NUR ---
LINE ESTABLISHED ON LAC 20G, LABS AND COVID TEST SENT TO LAB.
[2019-12-17 03:05] LABS: BASOPHILS % (AUTO) 0.5 % (0.0-2.0); HEMATOCRIT 36 % (33-45); HEMOGLOBIN 11.6 g/dL (11.5-14.8); LYMPHOCYTES % (AUTO) 12.3 % (20.0-44.0); MEAN CORPUSCULAR HGB CONC 32 g/dl (31.0-36.0); MEAN CORPUSCULAR VOLUME 86 fL (82-100); MONOCYTES # (AUTO) 0.8 /CMM (0.1-1.30); MONOCYTES % (AUTO) 9.7 % (2.0-12.0); NEUTROPHILS # (AUTO) 6.4 /CMM (1.8-8.9); NEUTROPHILS % (AUTO) 77.5 % (43.0-81.0); PLATELET COUNT (AUTO) 307 /CMM (150-450); RED BLOOD CELL COUNT(AUTO) 4.21 MIL/uL (4.0-5.2); WHITE BLOOD COUNT (AUTO) 8.2 K/uL (4.3-11.0)
--- NOTE | 2019-12-17 03:06 | NUR ---
Wilkins catheter inserted per sterile protocal. Immediate output 150 ML of urine, color yellow. Sent to lab.
--- NOTE | 2019-12-17 03:08 | NUR ---
RADIOLOGY AT BEDSIDE FOR XRAY
[2019-12-17 03:10] LABS: CALCIUM, SERUM 9.2 mg/dL (8.5-10.1); CARBON DIOXIDE 29 mmol/L (21-32); CHLORIDE 106 mmol/L (98-107); CREATININE 0.8 mg/dL (0.6-1.3); GLUCOSE 178 mg/dL (74-106); POTASSIUM 3.4 mmol/L (3.5-5.1); SODIUM SERUM 147 mmol/L (136-145); UREA NITROGEN, BLOOD 26 mg/dL (7-18)
[2019-12-17 03:12] LABS: APPEARANCE,URINE Slightly Cloudy (CLEAR); BILIRUBIN,URINE Negative (NEGATIVE); BLOOD, URINE Trace-intact Ery/uL (NEGATIVE); COLOR,URINE Yellow (YELLOW); KETONES,URINE Trace (NEGATIVE); LEUKOCYTE ESTERASE ,URINE Negative (NEGATIVE); NITRITE, URINE Positive (NEGATIVE); PROTEIN,URINE >=300 mg/dl (NEGATIVE); UGLUCOSE 100 MG/DL mg/dL (NEGATIVE)
[2019-12-17 03:23] LABS: ALANINE AMINOTRANSFERASE 21 U/L (12-78); ALBUMIN 3.8 g/dL (3.4-5.0); ALKALINE PHOSPHATASE 74 U/L (46-116); ASPARTATE AMINOTRANSFERASE 16 U/L (15-37); B-TYPE NATRIURETIC PEPTIDE 246 PG/ML (0-125); BILIRUBIN,DIRECT 0.1 mg/dL (0.0-0.2); BILIRUBIN,TOTAL 0.4 mg/dL (0.2-1.0); TOTAL PROTEIN, SERUM 8.8 g/dL (6.4-8.2)
--- NOTE | 2019-12-17 03:27 | NUR ---
CALLED [facility] FOR MED LIST. AWAITING MED LIST.
[2019-12-17 03:28] LABS: BACTERIA,URINE Moderate /HPF (None Seen); SQUAMOUS EPITHELIAL CELL,UR Few /HPF (None Seen); WBC,URINE 21-50 /HPF (0-3)
--- NOTE | 2019-12-17 04:08 | NUR ---
MED REC DONE.
--- NOTE | 2019-12-17 05:14 | NUR ---
DR. ESPAÑA PAGED PER ER ORDER.
[2019-12-17] MEDS ORDERED: CIPROFLOXACIN IV RTU 400 MG in PREMIX 1 EA IV SCH (05:30)
[2019-12-17] MEDS ORDERED: CIPROFLOXACIN IV RTU 200 ML IV ONE (05:32)
--- NOTE | 2019-12-17 05:39 | NUR ---
DR ESPAÑA ON THE PHONE WITH DR. GARBER
[2019-12-17] MEDS ORDERED: IV D5/0.45 NACL 1,000 ML IV PRN (05:52)
--- NOTE | 2019-12-17 05:58 | NUR ---
Patient is resting comfortably in bed with eyes closed. Easily aroused. VSS.
[2019-12-17] MEDS ORDERED: Z GUARD REMEDY 2 OZ OINT TP PRN (06:00)
[2019-12-17] MEDS ORDERED: ONDANSETRON HCL/PF 4 MG/2 ML VIAL IVP PRN (06:00)
[2019-12-17] MEDS ORDERED: MAGNESIUM HYDROXIDE 30 ML UDC PO PRN (06:00)
[2019-12-17] MEDS ORDERED: ZOLPIDEM TARTRATE 5 MG TABLET PO PRN (06:00)
[2019-12-17] MEDS ORDERED: MAG HYDROX/AL HYDROX/SIMETH 30 ML UDC PO PRN (06:00)
--- NOTE | 2019-12-17 06:05 | NUR ---
TELE 116-1
--- NOTE | 2019-12-17 07:30 | NUR ---
REPORT GIVEN TO VENITA PATTERSON FOR JOCELYN.
[2019-12-17 08:00] VITALS: BP 96/56
--- NOTE | 2019-12-17 08:00 | NUR ---
web site manager Notes Received pt from ER with UROSEPSIS. Pt is lethargic unable to answer all questions. Unable to place telemonitor.Alert and Oriented *1. Lethargic but arousal with pain and verbal stimuli. Body check done.Wound treatment ordered. Pt has IV hep lock on Left AC flushed well. NPO at this time . on RA. Call light within reach.VS is taken. Safety measures observed. Call light within reach. Admission ordered Dr Palacios. Plan of care discussed. All needs attended. No belongings noted.
[2019-12-17 09:42] VITALS: BP 96/56
--- NOTE | 2019-12-17 11:00 | NUR ---
ANALYSIS DIRECTOR NOTE ROUND MADE, VS TAKEN, WILL MONITOR
[2019-12-17] MEDS: LOSARTAN POTASSIUM 50 MG TABLET PO SCH (12:00)
[2019-12-17 12:03] LABS: THYROID STIMULATING HORMONE 0.273 uIU/mL (0.358-3.74)
[2019-12-17 12:04] LABS: PHOSPHORUS 3.5 mg/dL (2.5-4.9)
[2019-12-17] MEDS: IV NS 0.9% 1,000 ML IV PRN (12:39)
[2019-12-17] MEDS: POTASSIUM CL. PREMIX PERIPHER. 50 ML IV SCH ×2 (12:40→13:50)
[2019-12-17 12:52] VITALS: BP 100/88
[2019-12-17] MEDS: ENOXAPARIN SODIUM 40 MG/0.4 ML DISP.SYRIN SQ SCH (12:58)
[2019-12-17] MEDS: CALCIUM CARB 250MG /VITAMIN D 1 UDTAB PO SCH ×2 (13:05→16:49)
--- NOTE | 2019-12-17 14:00 | NUR ---
DIGITAL PROOFING AND PLATEMAKER NOTE ON IVF ORDERED ALL NEEDS ATTENDED, WILL MONITOR
[2019-12-17] MEDS: METFORMIN 500 MG TABLET PO SCH (16:49)
[2019-12-17] MEDS: CIPROFLOXACIN IV RTU 400 MG in PREMIX 1 EA IV SCH (16:53)
--- NOTE | 2019-12-17 18:20 | NUR ---
television analyzer note all needs attended not in distress, will cont to monitor
--- NOTE | 2019-12-17 20:00 | NUR ---
recieved alert good eye contact. npo remains as ordered.
[2019-12-17] MEDS: METOPROLOL TARTRATE 25 MG TABLET PO SCH (20:53)
[2019-12-17] MEDS: GLIMEPIRIDE 1 MG TABLET PO SCH (22:31)
[2019-12-17] MEDS: DOCUSATE SODIUM 100 MG CAPSULE PO SCH (22:32)
[2019-12-18 00:42] VITALS: BP 179/83
[2019-12-18] MEDS: ACETAMINOPHEN 325 MG TABLET PO PRN ×2 (00:47→22:19)
[2019-12-18] MEDS: IV NS 0.9% 1,000 ML IV PRN ×2 (02:52→13:50)
[2019-12-18 04:17] VITALS: BP 133/70
[2019-12-18] MEDS: CIPROFLOXACIN IV RTU 400 MG in PREMIX 1 EA IV SCH ×2 (05:14→17:00)
[2019-12-18] MEDS ORDERED: DEXTROSE 50%-WATER 50 ML DISP.SYRIN IV PRN (06:30)
[2019-12-18 06:38] LABS: BASOPHILS % (AUTO) 0.4 % (0.0-2.0); HEMATOCRIT 31 % (33-45); HEMOGLOBIN 9.9 g/dL (11.5-14.8); MEAN CORPUSCULAR HGB CONC 32 g/dl (31.0-36.0); MEAN CORPUSCULAR VOLUME 86 fL (82-100); MONOCYTES # (AUTO) 0.5 /CMM (0.1-1.30); MONOCYTES % (AUTO) 7.7 % (2.0-12.0); NEUTROPHILS # (AUTO) 4.4 /CMM (1.8-8.9); NEUTROPHILS % (AUTO) 74.9 % (43.0-81.0); PLATELET COUNT (AUTO) 237 /CMM (150-450); RED BLOOD CELL COUNT(AUTO) 3.62 MIL/uL (4.0-5.2); WHITE BLOOD COUNT (AUTO) 5.9 K/uL (4.3-11.0)
--- NOTE | 2019-12-18 07:20 | NUR ---
DB2 DEVELOPER NOTES RECEIVED PATIENT IN BED ASLEEP, AROUSABLE TO VERBAL AND TACTILE STIMULI. HOB ELEVATED. NO SOB. ON ROOM AIR WITH SPO2 OF 99%. DENIES ANY C/O PAIN NOR DISCOMFORT. ON TELE MOPNITORING: SR-91. LEFT AC # 20 INTACT AND PATENT INFUSING NS AT 125 ML/HR ROSANA WELL. BED IN LOWEST POSITION, LOCKED. BED ALARM ON. BED SIDERAILS UPX2. CALL LIGHT WITHIN REACH. FREQUENT VISUAL CHECK DONE.
[2019-12-18 07:22] LABS: ALANINE AMINOTRANSFERASE 16 U/L (12-78); ALKALINE PHOSPHATASE 57 U/L (46-116); ASPARTATE AMINOTRANSFERASE 15 U/L (15-37); BILIRUBIN,TOTAL 0.5 mg/dL (0.2-1.0); CALCIUM, SERUM 8.3 mg/dL (8.5-10.1); CARBON DIOXIDE 25 mmol/L (21-32); CHLORIDE 105 mmol/L (98-107); CREATININE 0.8 mg/dL (0.6-1.3); GLUCOSE 306 mg/dL (74-106); POTASSIUM 3.6 mmol/L (3.5-5.1); SODIUM SERUM 142 mmol/L (136-145); TOTAL PROTEIN, SERUM 7.4 g/dL (6.4-8.2); UREA NITROGEN, BLOOD 29 mg/dL (7-18)
[2019-12-18 07:28] LABS: CHOLESTEROL 90 mg/dL (<200); HDL CHOLESTEROL 26 mg/dL (40-60); LDL 48 mg/dL (0-99); THYROID STIMULATING HORMONE 0.313 uIU/mL (0.358-3.74); TRIGLYCERIDES 113 mg/dL (30-150)
[2019-12-18] MEDS ORDERED: LEVOTHYROXINE SODIUM 50 MCG TABLET PO SCH (07:30)
[2019-12-18 08:00] VITALS: BP 172/88
[2019-12-18 08:06] LABS: *SPE A/G RATIO 0.7 (0.7-1.7); *SPE ALBUMIN 3.3 g/dL (2.9-4.4); *SPE ALPHA-1-GLOBULIN 0.3 g/dL (0.0-0.4); *SPE ALPHA-2-GLOBULIN 1.6 g/dL (0.4-1.0); *SPE BETA GLOBULIN 1.2 g/dL (0.7-1.3); *SPE GLOBULIN, TOTAL 4.5 g/dL (2.2-3.9); *SPE M-SPIKE Not Observed g/dL (Not Observed); *SPEGAMMA GLOBULIN 1.4 g/dL (0.4-1.8)
[2019-12-18] MEDS: METOPROLOL TARTRATE 25 MG TABLET PO SCH ×2 (08:19→22:19)
[2019-12-18] MEDS: CALCIUM CARB 250MG /VITAMIN D 1 UDTAB PO SCH ×2 (08:19→16:52)
[2019-12-18] MEDS: BLOOD SUGAR DIAGNOSTIC 1 EACH STRIP VI SCH ×4 (08:19→22:20)
[2019-12-18] MEDS: METFORMIN 500 MG TABLET PO SCH ×2 (08:19→16:52)
[2019-12-18] MEDS: ENOXAPARIN SODIUM 40 MG/0.4 ML DISP.SYRIN SQ SCH (08:20)
[2019-12-18] MEDS: LOSARTAN POTASSIUM 50 MG TABLET PO SCH (08:20)
--- NOTE | 2019-12-18 08:45 | NUR ---
WOUND CARE CONSULT: REVIEWED CHART, NURSING DOCUMENTATION AND PHOTOS WHICH SHOW DISCOLORATION OF FEET, PRESENT ON ADMISSION. RECOMMENDATIONS MADE FOR SKIN PROTECTION. DISCUSSED WITH NURSING STAFF. RECOMMEND DPM CONSULT. DR LYON NOTIFIED OF CONSULT REQUEST. IN AGREEMENT WITH PLAN OF CARE. WILL SEE PRN.
[2019-12-18] MEDS: INSULIN REGULAR, HUMAN 100 UNIT/ML 3 ML VIAL SQ PRN ×2 (13:07→16:51)
[2019-12-18] MEDS: SOD FERRIC GLUC 125 MG in IV NS 0.9% 100 ML IV SCH (15:30)
--- NOTE | 2019-12-18 15:31 | NUR ---
CHECKERING MACHINE OPERATOR NOTES RECEIVED FERLICIT FROM PHARMACY, ADMINISTERED.
--- NOTE | 2019-12-18 16:00 | NUR ---
FAMILY SERVICES ASSISTANT NOTES RECEIVED PATIENT FROM [facility] RN IN STABLE CONDITION. WILL CONTINUE TO MONITOR.
[2019-12-18] MEDS: hydrALAZINE HCL 25 MG TABLET PO PRN (17:43)
--- NOTE | 2019-12-18 19:06 | NUR ---
LAUNDRY PRESSER NOTES PATIENT IN BED RESTING NO SOB OR ACUTE DISTRESS NOTED. PATIENT IN STABLE CONDITION. NO ACUTE CHANGES NOTED DURING SHIFT. WILL ENDORSE CARE TO PM SHIFT.
[2019-12-18 20:00] VITALS: BP 146/78
[2019-12-18] MEDS: DOCUSATE SODIUM 100 MG CAPSULE PO SCH (22:17)
--- NOTE | 2019-12-18 22:19 | NUR ---
RN NOTES COVID SPECIMEN DROPPED OFF TO LABORATORY C/O BRADLEY
[2019-12-18] MEDS: GLIMEPIRIDE 1 MG TABLET PO SCH (22:20)
[2019-12-18] MEDS: *INSULIN REGULAR(HUMULIN R)HUM 100 UNIT/ML VIAL SQ PRN (22:23)
[2019-12-19] VITALS: BP 141/72
[2019-12-19 04:00] VITALS: BP 128/63
[2019-12-19] MEDS: IV NS 0.9% 1,000 ML IV PRN ×2 (04:01→14:34)
[2019-12-19] MEDS: CIPROFLOXACIN IV RTU 400 MG in PREMIX 1 EA IV SCH ×2 (05:22→17:07)
--- NOTE | 2019-12-19 06:25 | NUR ---
LANG/RN PATIENT IS SLEEPING, APPEAR COMFORTABLE, NO DISTRESS NOTED, GOOD SLEEP NOTED THE WHOLE SHIFT, ALL NEEDS ATTENDED AT THIS TIME, CALL LIGHT IN REACH, WILL CONTINUE TO MONITOR.
[2019-12-19 06:31] LABS: BASOPHILS % (AUTO) 0.1 % (0.0-2.0); HEMATOCRIT 31 % (33-45); HEMOGLOBIN 10.3 g/dL (11.5-14.8); LYMPHOCYTES # (AUTO) 0.7 /CMM (0.8-4.8); LYMPHOCYTES % (AUTO) 8.4 % (20.0-44.0); MEAN CORPUSCULAR HGB CONC 33 g/dl (31.0-36.0); MEAN CORPUSCULAR VOLUME 85 fL (82-100); MONOCYTES # (AUTO) 0.5 /CMM (0.1-1.30); MONOCYTES % (AUTO) 5.7 % (2.0-12.0); NEUTROPHILS # (AUTO) 6.9 /CMM (1.8-8.9); NEUTROPHILS % (AUTO) 85.8 % (43.0-81.0); PLATELET COUNT (AUTO) 214 /CMM (150-450); RED BLOOD CELL COUNT(AUTO) 3.69 MIL/uL (4.0-5.2)
[2019-12-19 06:47] LABS: CALCIUM, SERUM 8.5 mg/dL (8.5-10.1); CREATININE 0.9 mg/dL (0.6-1.3); MAGNESIUM 1.9 mg/dL (1.8-2.4); PHOSPHORUS 2.6 mg/dL (2.5-4.9); POTASSIUM 3.1 mmol/L (3.5-5.1)
--- NOTE | 2019-12-19 07:30 | NUR ---
Tele/RN Opening Note Relieved patient awake, able to responds all stimuli. Skin is warm to touch, keep clean/dry, intact IV site running NS at 125 ml/hr. Respiratory even and unlabored in room air O2sat 99%, no SOB or distress observed. Kept low position of bed and locked wheel with elevated head of the bed for secure airway. Call light within reach, will continue to monitor.
[2019-12-19] MEDS: BLOOD SUGAR DIAGNOSTIC 1 EACH STRIP VI SCH ×5 (07:40→22:21)
[2019-12-19 08:00] VITALS: BP 128/76
[2019-12-19] MEDS: METOPROLOL TARTRATE 25 MG TABLET PO SCH ×2 (09:00→21:57)
[2019-12-19] MEDS: VALSARTAN 80 MG TABLET PO SCH (09:00)
[2019-12-19] MEDS: METFORMIN 500 MG TABLET PO SCH ×2 (09:00→17:07)
[2019-12-19] MEDS: CALCIUM CARB 250MG /VITAMIN D 1 UDTAB PO SCH ×2 (09:00→17:16)
[2019-12-19] MEDS: ENOXAPARIN SODIUM 40 MG/0.4 ML DISP.SYRIN SQ SCH (09:05)
[2019-12-19] MEDS: POTASSIUM CHLORIDE 20 MEQ TAB.PRT.SR PO SCH ×2 (11:02→12:11)
[2019-12-19] MEDS: SOD FERRIC GLUC 125 MG in IV NS 0.9% 100 ML IV SCH (14:33)
[2019-12-19] MEDS: INSULIN REGULAR, HUMAN 100 UNIT/ML 3 ML VIAL SQ PRN (17:09)
--- NOTE | 2019-12-19 18:30 | NUR ---
Tele/RN Closing note Patient in bed comfortably, no c/o pain or discomfort at this time. Respiratory even and unlabored in room air, O2sat 97%, skin is warm to touch, kept clean/dry, intact IV site, provided skin care. Keep low bed position with locked wheel and elevated head of bed for secure airway, call light within reach, will endorse weigher production.
[2019-12-19 20:00] VITALS: BP 162/75
[2019-12-19] MEDS: DOCUSATE SODIUM 100 MG CAPSULE PO SCH (21:56)
[2019-12-19] MEDS: GLIMEPIRIDE 1 MG TABLET PO SCH (21:56)
[2019-12-19] MEDS: *INSULIN REGULAR(HUMULIN R)HUM 100 UNIT/ML VIAL SQ PRN (22:23)
[2019-12-20] VITALS: BP 168/80
--- NOTE | 2019-12-20 02:20 | NUR ---
FILTER OPERATOR NOTES NOTED THAT PATIENT DID NOT HAVE CODE STATUES. INFORM DR ESPAÑA THAT PATIENT HAS A POLS FROM [address] ESPAÑA AWARE AND FULL CODE WILL BE ORDERED.
[2019-12-20] MEDS: IV NS 0.9% 1,000 ML IV PRN (03:29)
[2019-12-20 04:00] VITALS: BP 153/75
[2019-12-20] MEDS: ACETAMINOPHEN 325 MG TABLET PO PRN ×2 (04:13→21:33)
--- NOTE | 2019-12-20 04:20 | NUR ---
COMMISSARY SUPERINTENDENT NOTES PATIENT HAS FEVER OF 101.4. TYLENOL ADMINISTRATED AND COOLING MEASURE INTERVENTIONS PERFORMED. WILL CONTINUE TO MONITOR.
[2019-12-20] MEDS: CIPROFLOXACIN IV RTU 400 MG in PREMIX 1 EA IV SCH ×2 (05:00→17:54)
[2019-12-20 06:48] LABS: BASOPHILS % (AUTO) 0.2 % (0.0-2.0); HEMATOCRIT 30 % (33-45); HEMOGLOBIN 9.9 g/dL (11.5-14.8); LYMPHOCYTES # (AUTO) 0.7 /CMM (0.8-4.8); LYMPHOCYTES % (AUTO) 10.2 % (20.0-44.0); MEAN CORPUSCULAR HGB CONC 33 g/dl (31.0-36.0); MEAN CORPUSCULAR VOLUME 84 fL (82-100); MONOCYTES # (AUTO) 0.2 /CMM (0.1-1.30); MONOCYTES % (AUTO) 3.5 % (2.0-12.0); NEUTROPHILS # (AUTO) 5.7 /CMM (1.8-8.9); NEUTROPHILS % (AUTO) 86.1 % (43.0-81.0); PLATELET COUNT (AUTO) 191 /CMM (150-450); RED BLOOD CELL COUNT(AUTO) 3.59 MIL/uL (4.0-5.2); WHITE BLOOD COUNT (AUTO) 6.6 K/uL (4.3-11.0)
[2019-12-20 06:57] LABS: CALCIUM, SERUM 7.8 mg/dL (8.5-10.1); CREATININE 0.6 mg/dL (0.6-1.3); MAGNESIUM 1.7 mg/dL (1.8-2.4); PHOSPHORUS 1.9 mg/dL (2.5-4.9)
[2019-12-20 07:00] LABS: POTASSIUM 2.5 mmol/L (3.5-5.1)
--- NOTE | 2019-12-20 07:04 | NUR ---
ENVIRONMENTAL SERVICE AIDE NOTES RECEIVED A CRITICAL LAB FROM [facility] FOR POTASSIUM OF 2.5 WILL ENDORSE TO MORNING RN.
--- NOTE | 2019-12-20 07:36 | NUR ---
HYDRAULIC PRESS OPERATOR NOTES PATIENT IN BED AWAKE, COMFORTABLE , NO SOB OR DISCOMFORT NOTED AT THIS TIME. REPORT GIVEN TO MORNING SHIFT NURSE.
[2019-12-20 08:00] VITALS: BP 149/78
--- NOTE | 2019-12-20 08:00 | NUR ---
RN NOTES RECEIVED PATIENT IN THE BED TELE SR-97, ROOM AIR, PATIENT HAS NO ACUTE RESPIRATORY DISTRESS, V/S STABLE, PATIENT TOLERATED BREAKFAST WITH ASSIST TOLERATED 75 %, HOB ELEVATED, ASSIST PATIENT TURN AND REPOSTION Q 2 HR, INFILTRATED IV ACCES, CALLED MD FOR MIDLINE INSERTION, GET CALL FROM HOSPITALIST FOR CRITICAL LAB PLACEMENT. ADMINISTERED SCHEDULED MEDICATION, CALL LIGHT WITHIN TO REACH. PATIENT USING DIAPER , ASSIST TURN AND REPOSTION Q 2 HR. CONTINUED MONITORING.
--- NOTE | 2019-12-20 09:19 | NUR ---
left message of patient"s potassium of 2.5 waiting for returning call back to [facility] # [phone]
[2019-12-20] MEDS: METOPROLOL TARTRATE 25 MG TABLET PO SCH ×2 (10:20→21:33)
[2019-12-20] MEDS: CALCIUM CARB 250MG /VITAMIN D 1 UDTAB PO SCH ×2 (10:20→16:27)
[2019-12-20] MEDS: METFORMIN 500 MG TABLET PO SCH ×2 (10:21→16:27)
[2019-12-20] MEDS: VALSARTAN 80 MG TABLET PO SCH (10:21)
[2019-12-20] MEDS: ENOXAPARIN SODIUM 40 MG/0.4 ML DISP.SYRIN SQ SCH (10:22)
[2019-12-20] MEDS: POTASSIUM CL. PREMIX PERIPHER. 50 ML IV SCH ×6 (10:25→21:43)
[2019-12-20] MEDS ORDERED: NEUTRA PHOS 1 POWD.PACKET PO ONE (11:30)
[2019-12-20 12:00] VITALS: BP 139/75
--- NOTE | 2019-12-20 12:00 | NUR ---
RN NOTES BS-255 COVERAGE GIVEN, ASSIST FOR LUNCH PER S IRON WORKER, SAFETY PRECAUTION MAINTAINED ALL THE TIME.
[2019-12-20] MEDS: BLOOD SUGAR DIAGNOSTIC 1 EACH STRIP VI SCH ×3 (12:48→21:34)
[2019-12-20] MEDS: Magnesium 1GM/D5W 100ML PREMIX 100 ML IV SCH ×2 (12:50→17:55)
--- NOTE | 2019-12-20 15:00 | NUR ---
RN NOTES INSERTED MIDLINE BY MIDLINE RN ON LEFT UA INTACT, INFUSING FERRLECIT 100 ML/HR INTACT.
[2019-12-20] MEDS: SOD FERRIC GLUC 125 MG in IV NS 0.9% 100 ML IV SCH (15:39)
[2019-12-20] MEDS: *INSULIN REGULAR(HUMULIN R)HUM 100 UNIT/ML VIAL SQ PRN ×2 (15:41→21:56)
[2019-12-20] MEDS: hydrALAZINE HCL 25 MG TABLET PO PRN (15:47)
--- NOTE | 2019-12-20 15:47 | NUR ---
RN NOTES ADMINISTERED APRESOLINE 25 MG FR BP 175/88, P-100.
[2019-12-20 16:00] VITALS: BP 175/88
[2019-12-20] MEDS: INSULIN REGULAR, HUMAN 100 UNIT/ML 3 ML VIAL SQ PRN (17:39)
--- NOTE | 2019-12-20 18:30 | NUR ---
RN NOTES PATIENT IN THE BED , TOLERATED DINNER WITH ASSIST 75%, BS-267 MG/DL COVERAGE GIVEN, ALSO ADMINISTERED SCHEDULED MEDICATION, ASSIST PATIENT TURN AND REPOSTION Q2 HR. CALL LIGHT WITHIN TO REACH. ENDORSED ONCOMING NURSE FOLLOW PLAN OF CARE .
[2019-12-20 20:00] VITALS: BP 160/86
[2019-12-20] MEDS: DOCUSATE SODIUM 100 MG CAPSULE PO SCH (21:33)
[2019-12-20] MEDS: GLIMEPIRIDE 1 MG TABLET PO SCH (21:33)
--- NOTE | 2019-12-20 22:54 | NUR ---
RN NOTE ENDORSED TO RN JUDY FOR CONTINUATION OF CARE AND TO MONITOR BLOOD PRESSURE AND TEMPERATURE.
[2019-12-21] VITALS: BP 102/50
[2019-12-21 04:00] VITALS: BP 144/77
[2019-12-21] MEDS: CIPROFLOXACIN IV RTU 400 MG in PREMIX 1 EA IV SCH ×2 (05:12→17:47)
[2019-12-21 07:10] LABS: BASOPHILS % (AUTO) 0.1 % (0.0-2.0); HEMATOCRIT 29 % (33-45); HEMOGLOBIN 9.5 g/dL (11.5-14.8); LYMPHOCYTES % (AUTO) 13.2 % (20.0-44.0); MEAN CORPUSCULAR HGB CONC 33 g/dl (31.0-36.0); MEAN CORPUSCULAR VOLUME 84 fL (82-100); MONOCYTES # (AUTO) 0.4 /CMM (0.1-1.30); MONOCYTES % (AUTO) 5.2 % (2.0-12.0); NEUTROPHILS # (AUTO) 6.4 /CMM (1.8-8.9); NEUTROPHILS % (AUTO) 81.5 % (43.0-81.0); PLATELET COUNT (AUTO) 174 /CMM (150-450); RED BLOOD CELL COUNT(AUTO) 3.48 MIL/uL (4.0-5.2); WHITE BLOOD COUNT (AUTO) 7.9 K/uL (4.3-11.0)
[2019-12-21 07:13] LABS: CALCIUM, SERUM 7.6 mg/dL (8.5-10.1); CREATININE 0.7 mg/dL (0.6-1.3); MAGNESIUM 2.1 mg/dL (1.8-2.4); PHOSPHORUS 1.9 mg/dL (2.5-4.9)
[2019-12-21 08:00] VITALS: BP 124/78
[2019-12-21] MEDS: CALCIUM CARB 250MG /VITAMIN D 1 UDTAB PO SCH ×2 (08:55→17:23)
[2019-12-21] MEDS: METOPROLOL TARTRATE 25 MG TABLET PO SCH ×2 (08:56→20:30)
[2019-12-21] MEDS: VALSARTAN 80 MG TABLET PO SCH (08:56)
[2019-12-21] MEDS: METFORMIN 500 MG TABLET PO SCH ×2 (08:56→17:23)
[2019-12-21] MEDS: ENOXAPARIN SODIUM 40 MG/0.4 ML DISP.SYRIN SQ SCH (08:59)
[2019-12-21] MEDS: BLOOD SUGAR DIAGNOSTIC 1 EACH STRIP VI SCH ×4 (09:21→21:24)
[2019-12-21] MEDS: POTASSIUM CHLORIDE 20 MEQ TAB.PRT.SR PO SCH ×3 (10:47→13:32)
[2019-12-21] MEDS ORDERED: K PHOS NEUTRAL 250 MG TABLET PO ONE (11:30)
[2019-12-21 12:00] VITALS: BP 118/72
[2019-12-21] MEDS: INSULIN REGULAR, HUMAN 100 UNIT/ML 3 ML VIAL SQ PRN ×3 (13:09→21:27)
[2019-12-21] MEDS: SOD FERRIC GLUC 125 MG in IV NS 0.9% 100 ML IV SCH (14:26)
[2019-12-21 16:00] VITALS: BP 128/68
[2019-12-21] MEDS: IV NS 0.9% 1,000 ML IV PRN (17:47)
--- NOTE | 2019-12-21 18:42 | NUR ---
TELE/RN NOTE THE PATIENT IS ALERT AND ORIENTED TO SELF. IN ROOM AIR AND OXYGEN SATURATION IS AT 97%. DENIES SOB. RESPIRATION REGULAR AND UNLABORED. DENIES PAIN. THE PATIENT IS IN NO APPARENT DISTRESS. EXTERNAL TELE BOX READING IS SINUS TACH 111. LAC G 20 PATENT AND NS INFUSING AT 125ML/HR. NO S/S INFILTRATION NOTED. BED LOW AND LOCKED. SIDE RAILS UP X3. CALL LIGHT WITHIN REACH. WILL ENDORSE TO NIGHTS SHIFT.
[2019-12-21 20:00] VITALS: BP 179/89
[2019-12-21] MEDS: ACETAMINOPHEN 325 MG TABLET PO PRN (20:52)
[2019-12-21] MEDS: GLIMEPIRIDE 1 MG TABLET PO SCH (21:14)
[2019-12-21] MEDS: DOCUSATE SODIUM 100 MG CAPSULE PO SCH (21:14)
[2019-12-21 22:52] LABS: CHLORIDE,URINE RANDOM 193 mmol/L (55-125); POTASSIUM RNDM,URINE 20 mmol/L (25-125); URINE SODIUM, RANDOM 174 mmol/l (40-220)
[2019-12-22] VITALS (8 sets, daily range): BP systolic 110–170; BP diastolic 51–76
[2019-12-22] MEDS: HYDROCODONE/APAP 5/325MG 1 EACH TABLET PO PRN (01:14)
[2019-12-22 02:51] LABS: OSMOLALITY,URINE 508 mOS/kg (340-1090)
[2019-12-22] MEDS: IV NS 0.9% 1,000 ML IV PRN ×2 (03:48→09:54)
[2019-12-22] MEDS: CIPROFLOXACIN IV RTU 400 MG in PREMIX 1 EA IV SCH ×2 (05:01→17:08)
[2019-12-22 06:14] LABS: BASOPHILS % (AUTO) 0.3 % (0.0-2.0); EOSINOPHILS % (AUTO) 0.1 % (0.0-6.0); HEMATOCRIT 28 % (33-45); HEMOGLOBIN 9.3 g/dL (11.5-14.8); LYMPHOCYTES # (AUTO) 1.1 /CMM (0.8-4.8); MEAN CORPUSCULAR HGB CONC 33 g/dl (31.0-36.0); MEAN CORPUSCULAR VOLUME 84 fL (82-100); MONOCYTES # (AUTO) 0.4 /CMM (0.1-1.30); NEUTROPHILS # (AUTO) 7.6 /CMM (1.8-8.9); NEUTROPHILS % (AUTO) 83.6 % (43.0-81.0); PLATELET COUNT (AUTO) 187 /CMM (150-450); RED BLOOD CELL COUNT(AUTO) 3.35 MIL/uL (4.0-5.2); WHITE BLOOD COUNT (AUTO) 9.1 K/uL (4.3-11.0)
[2019-12-22 06:47] LABS: CALCIUM, SERUM 7.5 mg/dL (8.5-10.1); CREATININE 0.6 mg/dL (0.6-1.3); MAGNESIUM 1.7 mg/dL (1.8-2.4); PHOSPHORUS 2.1 mg/dL (2.5-4.9)
[2019-12-22 07:30] LABS: POTASSIUM 2.7 mmol/L (3.5-5.1)
--- NOTE | 2019-12-22 07:30 | NUR ---
TUGGER OPERATOR NOTES RECEIVED PATIENT IN THE BED, ROOM AIR, PATIENT HAS NO ACUTE RESPIRATORY DISTRESS, AO 1-2, SR ON MONITOR, NO SIGNS OF PAIN NOTED, LAC G 20 WIT NS AT 125 ML/HR RUNNING, SITE CLEAR. SEE NURSING FLOWSHEET FOR SKIN ISSUES. ON MECHANICAL SOFT DIET, CRUSH MEDS, ASSIST IN FEEDING. CALL LIGHT WITHIN REACH, SAFETY MEASURES IN PLACE. WILL MONITOR.
[2019-12-22] MEDS: BLOOD SUGAR DIAGNOSTIC 1 EACH STRIP VI SCH ×4 (07:39→22:06)
--- NOTE | 2019-12-22 08:21 | NUR ---
RN NOTES ACCUCHECK DONE. BS 75 MG/DL. NO INSULIN COVERAGE GIVEN
[2019-12-22] MEDS: METFORMIN 500 MG TABLET PO SCH ×2 (09:00→16:09)
--- NOTE | 2019-12-22 09:45 | NUR ---
RN NOTES REPORT GIVEN TO STACY JONES JOCELYN.
[2019-12-22] MEDS: METOPROLOL TARTRATE 25 MG TABLET PO SCH ×2 (09:53→20:21)
[2019-12-22] MEDS: VALSARTAN 80 MG TABLET PO SCH (09:53)
[2019-12-22] MEDS: CALCIUM CARB 250MG /VITAMIN D 1 UDTAB PO SCH ×2 (09:54→16:08)
[2019-12-22] MEDS: ENOXAPARIN SODIUM 40 MG/0.4 ML DISP.SYRIN SQ SCH (09:56)
[2019-12-22] MEDS: Magnesium 1GM/D5W 100ML PREMIX 100 ML IV SCH ×3 (09:57→12:00)
--- NOTE | 2019-12-22 10:00 | NUR ---
911 telecommunicator note received patient from griselda rn awake alert x1 ,on tele monitor sr hr 82 with lt upper arm mid line in place, on ivf as ordered, bed in lowest and locked position , will cont to monitor
[2019-12-22] MEDS: POTASSIUM CL. PREMIX PERIPHER. 50 ML IV SCH ×4 (10:58→14:16)
[2019-12-22] MEDS ORDERED: NEUTRA PHOS 1 POWD.PACKET PO ONE (11:00)
[2019-12-22] MEDS: POTASSIUM CHLORIDE 20 MEQ TAB.PRT.SR PO SCH ×2 (11:49→13:06)
--- NOTE | 2019-12-22 12:00 | NUR ---
DEBEADER NOTE PER MD ORDER ADMINISTER 2 BAG OF MAG
[2019-12-22] MEDS: INSULIN REGULAR, HUMAN 100 UNIT/ML 3 ML VIAL SQ PRN ×3 (12:17→22:08)
[2019-12-22] MEDS: SOD FERRIC GLUC 125 MG in IV NS 0.9% 100 ML IV SCH (15:11)
--- NOTE | 2019-12-22 19:45 | NUR ---
PEDIATRIC OCCUPATIONAL THERAPIST OPENING NOTES RECEIVED PT A/OX1 IN BED RESTING COMFORTABLY. PATIENT IN NO S/SX OF ACUTE DISTRESS AT THIS TIME. NO SOB NOTED. PATIENT'S BREATHING IS EVEN AND UNLABORED. PATIENT IS ON RA ; TOLERATING WELL. PATIENT ON TELE MONITORING READING HR IS @ 106. NOTED IV SITE ON L UA;G 20 PATENT IN INTACT, NO S/S OF INFECTION OR INFILTRATION. SAFETY MEASURES HAVE BEEN PROVIDED AND IMPLEMENTED. PATIENT BED ALARM IS ON. HEAD OF BED ELEVATED. BED IS LOCKED, IN LOWEST POSITION AND SIDE RAILS UP. CALL LIGHT WITHIN REACH OF THE PATIENT. WILL CONTINUE TO MONITOR AND REASSESS FOR ANY CHANGES.
[2019-12-22] MEDS: DOCUSATE SODIUM 100 MG CAPSULE PO SCH (21:50)
[2019-12-22] MEDS: GLIMEPIRIDE 1 MG TABLET PO SCH (21:50)
[2019-12-23] VITALS (7 sets, daily range): BP systolic 109–149; BP diastolic 53–81
[2019-12-23] MEDS: CIPROFLOXACIN IV RTU 400 MG in PREMIX 1 EA IV SCH (05:31)
[2019-12-23 06:11] LABS: EOSINOPHILS % (AUTO) 0.1 % (0.0-6.0); HEMATOCRIT 25 % (33-45); HEMOGLOBIN 8.5 g/dL (11.5-14.8); LYMPHOCYTES # (AUTO) 1.2 /CMM (0.8-4.8); LYMPHOCYTES % (AUTO) 13.5 % (20.0-44.0); MEAN CORPUSCULAR HGB CONC 34 g/dl (31.0-36.0); MEAN CORPUSCULAR VOLUME 83 fL (82-100); MONOCYTES # (AUTO) 0.4 /CMM (0.1-1.30); MONOCYTES % (AUTO) 4.8 % (2.0-12.0); NEUTROPHILS # (AUTO) 7.1 /CMM (1.8-8.9); NEUTROPHILS % (AUTO) 81.6 % (43.0-81.0); PLATELET COUNT (AUTO) 201 /CMM (150-450); RED BLOOD CELL COUNT(AUTO) 3.04 MIL/uL (4.0-5.2); WHITE BLOOD COUNT (AUTO) 8.7 K/uL (4.3-11.0)
[2019-12-23] MEDS: BLOOD SUGAR DIAGNOSTIC 1 EACH STRIP VI SCH ×4 (06:34→21:44)
[2019-12-23 06:37] LABS: ALANINE AMINOTRANSFERASE 14 U/L (12-78); ALKALINE PHOSPHATASE 43 U/L (46-116); ASPARTATE AMINOTRANSFERASE 25 U/L (15-37); BILIRUBIN,TOTAL 0.4 mg/dL (0.2-1.0); CALCIUM, SERUM 7.4 mg/dL (8.5-10.1); CARBON DIOXIDE 24 mmol/L (21-32); CHLORIDE 102 mmol/L (98-107); CREATININE 0.5 mg/dL (0.6-1.3); GLUCOSE 59 mg/dL (74-106); MAGNESIUM 1.8 mg/dL (1.8-2.4); PHOSPHORUS 1.8 mg/dL (2.5-4.9); POTASSIUM 3.1 mmol/L (3.5-5.1); SODIUM SERUM 137 mmol/L (136-145); UREA NITROGEN, BLOOD 9 mg/dL (7-18)
--- NOTE | 2019-12-23 06:56 | NUR ---
CRYSTAL FLAT GRINDER - CLOSING NOTES PATIENT IN BED RESTING COMFORTABLY. PATIENT IN NO ACUTE DISTRESS. NO SOB NOTED, PT BREATHING IS EVEN AND UNLABORED. PT ON RA SATURATING > 95% SP02. PATIENT ON TELE MONITORING READING SINUS RHYTHM HR IS @96. PATIENT IS CLEAN , DRY AND COMFORTABLE THROUGHOUT THE SHIFT. NEEDS AND CONCERNS ADDRESSED. SAFETY MEASURES IN PLACED. PATIENT BED IS LOCKED AND IN LOWEST POSITION. SIDE RAILS UP. CALL LIGHT WITHIN REACH OF THE PATIENT. WILL ENDORSE TO AM SHIFT FOR JOCELYN.
--- NOTE | 2019-12-23 07:33 | NUR ---
RN OPENING NOTES RECEIVED PATIENT SLEEPING IN BED COMFORTABLY, NO S/SX OF DISTRESS. PT IS AOX2, VERBAL, AND ON BED REST. SHE IS ON RA, TOLERATING WELL, NO SOB OR RESP DISTRESS. CONTACT AND DROPLET ISO HAVE BEEN IMPLEMENTED AND ENFORCED FOR COVID-19. TELE MONITOR SHOWING SR. WOUNDS PRESENT ON BILATERAL HEELS, WILL ADDRESS PER WOUND CAREPLAN. IV SITE ON FAWN 20 G IS PATENT AND INTACT, INFUSING NS AT 50 ML/HR. SAFETY MEASURES HAVE BEEN IMPLEMENTED, CALL LIGHT IS WITHIN REACH, BED IS IN LOWEST AND LOCKED POSITION, SIDE RAILS UP X2, WILL CONTINUE TO MONITOR FOR ANY CHANGES.
[2019-12-23] MEDS: ENOXAPARIN SODIUM 40 MG/0.4 ML DISP.SYRIN SQ SCH (08:49)
[2019-12-23] MEDS: VALSARTAN 80 MG TABLET PO SCH (08:51)
[2019-12-23] MEDS: METFORMIN 500 MG TABLET PO SCH ×2 (08:52→16:28)
[2019-12-23] MEDS: METOPROLOL TARTRATE 25 MG TABLET PO SCH ×2 (08:53→21:09)
[2019-12-23] MEDS: CALCIUM CARB 250MG /VITAMIN D 1 UDTAB PO SCH ×2 (08:53→16:28)
[2019-12-23] MEDS: NEUTRA PHOS 1 POWD.PACKET PO SCH ×2 (10:10→17:03)
[2019-12-23] MEDS: POTASSIUM CHLORIDE 20 MEQ TAB.PRT.SR PO SCH ×5 (10:10→14:09)
[2019-12-23] MEDS: IV NS 0.9% 1,000 ML IV PRN (11:22)
[2019-12-23] MEDS: INSULIN REGULAR, HUMAN 100 UNIT/ML 3 ML VIAL SQ PRN ×2 (12:21→17:27)
--- NOTE | 2019-12-23 14:34 | NUR ---
COVID RESULT RESWAB FF. UP STILL PENDING.
[2019-12-23] MEDS: ACETAMINOPHEN 325 MG TABLET PO PRN (16:28)
[2019-12-23] MEDS ORDERED: VALS80TA2 PO (17:32)
--- NOTE | 2019-12-23 18:26 | NUR ---
RN NOTES SPOKE WITH PT SON, UPDATED HIM ON PT CONDITION AND PLAN OF CARE.
--- NOTE | 2019-12-23 18:46 | NUR ---
PER RAY CM PATIENT WILL BE DISCHARGE IN AM,[facility] NOT READY YET.
--- NOTE | 2019-12-23 19:11 | NUR ---
RN CLOSING NOTES PT IS RESTING IN BED COMFORTABLY, NO S/SX OF DISTRESS. PT IS ON 4L OF OXYGEN TOLERATING WELL. SAFETY MEASURES HAVE BEEN IMPLEMENTED, CALL LIGHT IS WITHIN REACH, BED IS IN LOWEST AND LOCKED POSITION, SIDE RAILS UP X2, PT HAS BEEN ENDORSED TO NIGHTSHIFT RN FOR JOCELYN.
--- NOTE | 2019-12-23 19:20 | NUR ---
NEUROLOGY TECHNICIAN OPENING NOTES: RECEIVED PATIENT A/OX1, IN BED RESTING COMFORTABLY.PATIENT IN NO S/SX OF ACUTE DISTRESS AT THIS TIME. NO SOB NOTED. PATIENT'S BREATHING IS EVEN AND UNLABORED. PATIENT IS ON ROOM AIR; TOLERATING WELL. PATIENT ON TELE MONITORING READING SINUS RHYTHM HR IS @78. NOTED IV SITE ON FAWN; PATENT IN INTACT,NO S/S OF INFECTION OR INFILTRATION. SAFETY MEASURES HAVE BEEN PROVIDED AND IMPLEMENTED. PATIENT BED ALARM IS ON. HEAD OF BED ELEVATED. BED IS LOCKED, IN LOWEST POSITION AND SIDE RAILS UP. CALL LIGHT WITHIN REACH OF THE PATIENT. WILL CONTINUE TO MONITOR AND REASSESS FOR ANY CHANGES.
[2019-12-23] MEDS: DOCUSATE SODIUM 100 MG CAPSULE PO SCH (21:09)
[2019-12-23] MEDS: GLIMEPIRIDE 1 MG TABLET PO SCH (21:10)
[2019-12-23] MEDS: CIPROFLOXACIN HCL 250 MG TABLET PO SCH (21:10)
[2019-12-23] MEDS: HYDROCODONE/APAP 5/325MG 1 EACH TABLET PO PRN (23:51)
[2019-12-24] VITALS: BP 144/54
[2019-12-24 04:00] VITALS: BP 156/60
[2019-12-24] MEDS: IV NS 0.9% 1,000 ML IV PRN (04:45)
[2019-12-24 06:34] LABS: BASOPHILS % (AUTO) 0.1 % (0.0-2.0); EOSINOPHILS % (AUTO) 1.9 % (0.0-6.0); HEMATOCRIT 27 % (33-45); HEMOGLOBIN 8.8 g/dL (11.5-14.8); LYMPHOCYTES # (AUTO) 1.1 /CMM (0.8-4.8); MEAN CORPUSCULAR HGB CONC 33 g/dl (31.0-36.0); MEAN CORPUSCULAR VOLUME 85 fL (82-100); MONOCYTES # (AUTO) 0.4 /CMM (0.1-1.30); MONOCYTES % (AUTO) 6.4 % (2.0-12.0); NEUTROPHILS # (AUTO) 4.7 /CMM (1.8-8.9); NEUTROPHILS % (AUTO) 74.6 % (43.0-81.0); PLATELET COUNT (AUTO) 240 /CMM (150-450); RED BLOOD CELL COUNT(AUTO) 3.16 MIL/uL (4.0-5.2); WHITE BLOOD COUNT (AUTO) 6.3 K/uL (4.3-11.0)
--- NOTE | 2019-12-24 06:35 | NUR ---
RN CLOSING NOTE: PATIENT REMAINS IN ROOM RESTING COMFORTABLY.NO SIGNS OF RESPIRATORY, ON RA;TOLERATING WELL SATURATING @ >95% SP02.PATIENT IS CLEAN , DRY AND COMFORTABLE THROUGHOUT THE SHIFT. ALL DUE MEDS GIVEN ORDERED ; PATIENT TOLERATED WELL. SAFETY MEASURES IMPLEMENTED, BED IN LOWEST POSITION, LOCKED, SIDE RAILS UP, CALL LIGHT WITHIN REACH. ENDORSED TO ONCOMING SHIFT RN FOR CONTINUITY OF CARE.
[2019-12-24 06:57] LABS: MAGNESIUM 1.9 mg/dL (1.8-2.4); PHOSPHORUS 2.4 mg/dL (2.5-4.9)
[2019-12-24] MEDS: BLOOD SUGAR DIAGNOSTIC 1 EACH STRIP VI SCH ×2 (07:45→12:21)
[2019-12-24 08:00] VITALS: BP 163/67
--- NOTE | 2019-12-24 08:00 | NUR ---
RN OPENING NOTES RECEIVED PATIENT LAYING DOWN IN BED COMFORTABLY, NO S/S OF DISTRESS. PT IS AOX.PT IS ON RA, SATING 94, PT HAS UN LABORED BREATHING, AND NO SOB. TELE MONITOR SHOWING SR AND HR IN 70S. IV SITE ON FAWN 18G SALINE LOCK IS PATENT, DRESSING INTACT, FLUSHES WELL. SAFETY MEASURES IMPLEMENTED, CALL LIGHT IS WITHIN REACH, BED IS IN LOWEST AND LOCKED, SIDE RAILS UP X2, WILL CONTINUE TO MONITOR FOR ANY CHANGES.
[2019-12-24] MEDS: VALSARTAN 80 MG TABLET PO SCH (08:33)
[2019-12-24] MEDS: ENOXAPARIN SODIUM 40 MG/0.4 ML DISP.SYRIN SQ SCH (08:34)
[2019-12-24] MEDS: METOPROLOL TARTRATE 25 MG TABLET PO SCH (08:35)
[2019-12-24] MEDS: CALCIUM CARB 250MG /VITAMIN D 1 UDTAB PO SCH (08:35)
[2019-12-24] MEDS: METFORMIN 500 MG TABLET PO SCH (08:58)
--- NOTE | 2019-12-24 08:58 | NUR ---
RN NOTE METFORMIN IS NOT ADMINISTERED DUE TO BS OF 73. CHARGE NURSE IS AWARE
[2019-12-24] MEDS: CIPROFLOXACIN HCL 250 MG TABLET PO SCH (09:17)
[2019-12-24 12:00] VITALS: BP 140/72
[2019-12-24] MEDS: INSULIN REGULAR, HUMAN 100 UNIT/ML 3 ML VIAL SQ PRN (12:27)
[2019-12-24] MEDS ORDERED: NEUTRA PHOS 1 POWD.PACKET PO ONE (15:00)
[2019-12-24 16:00] VITALS: BP 154/64
--- NOTE | 2019-12-24 16:30 | NUR ---
METAL SANDER NOTES PT WENT TO SNF WITH STABLE CONDITION, VSS, MIDLINE REMOVED NO S/S OF BLEEDING. REPORT GIVEN TO NURSE AT SNF AND AMBULANCE CREW.
== END 2019-12-24 16:31 | DRG 871 ==
LOC: ER 02:30 → TELE1 06:58
PROVIDERS: ADMIT Student in an Organized Health Care Education/Training Program; ATTEND Hospitalist
PROC: 05HA33Z Insertion of Infusion Device into Left Brachial Vein, Percutaneous Approach (ICD-10-PCS; principal; 2019-12-20)
DX: A41.89 Other specified sepsis (principal); G93.41 Metabolic encephalopathy; N17.0 Acute kidney failure with tubular necrosis; U07.1 COVID-19; N39.0 Urinary tract infection, site not specified; L97.429 Non-pressure chronic ulcer of left heel and midfoot with unspecified severity; L97.419 Non-pressure chronic ulcer of right heel and midfoot with unspecified severity; E86.0 Dehydration; F03.90 Unspecified dementia, unspecified severity, without behavioral disturbance, psychotic disturbance, mood disturbance, and anxiety; Z86.73 Personal history of transient ischemic attack (TIA), and cerebral infarction without residual deficits; Z88.0 Allergy status to penicillin; D64.9 Anemia, unspecified; E78.5 Hyperlipidemia, unspecified; E87.6 Hypokalemia; E03.9 Hypothyroidism, unspecified; R53.1 Weakness; F41.9 Anxiety disorder, unspecified; F32.9 Major depressive disorder, single episode, unspecified; E61.1 Iron deficiency; E11.621 Type 2 diabetes mellitus with foot ulcer; E83.42 Hypomagnesemia; E83.39 Other disorders of phosphorus metabolism
CPT/HCPCS: 36415; 71045-TC; 80048-TC; 80053-TC; 80061-TC; 80076-TC; 81000-TC; 82436-TC; 82728-TC; 82962-TC; 83540-TC; 83605-TC; 83735-TC; 83880; 83935-TC; 84100-TC; 84133-TC; 84155; 84165; 84300-TC; 84439-TC; 84443-TC; 84484-TC; 85025-TC; 85730-TC; 87040-TC; 87081-TC; 87086-TC; A4216; G0378; J0744; J1650; J1815; J2916; J3475; J3480; J7030; J7050; U0003-CS

== ENCOUNTER 2021-09-08 19:34 | Emergency (ER) | payer MEDICARE, MEDICAID ==
[~2021-09-08] VITALS: Ht 167.6 cm; Wt 65.8 kg
[~2021-09-08 19:34] MED LIST changes: -ATOR10TA PO; -LOSA100T31 PO; +VALS80TA2 PO
--- NOTE | 2021-09-08 19:45 | NUR ---
[facility] FROM [facility], C/O WITNESSED GLF OUT OF WHEELCHAIR, LANDED ON RIGHT SIDE OF FORHEAD +ABRASION/BRUISING -LOC PT ON BLOODTHINNERS. PATIENT ALERT AND ORIENTED X2, BROUGHT IN ON STTRETCHER AND PLACED IN BED 07 ON MONITOR AND POX.
--- NOTE | 2021-09-08 20:17 | NUR ---
PT TAKEN TO CT
--- NOTE | 2021-09-08 21:37 | NUR ---
[facility] ETA 90 MIN. EARLIEST
--- NOTE | 2021-09-08 21:44 | NUR ---
CALLED [facility], SPOKE TO JASPAL AWARE PT IS BEING DISCHARGED. AMBULANCE ETA 90 MINUTES.
--- NOTE | 2021-09-08 22:51 | NUR ---
Patient discharged to home in stable condition. Written and verbal after care instructions given. Patient verbalizes understanding of instruction.
[2021-09-08 22:52] VITALS: BP 130/73
== END 2021-09-08 22:53 ==
LOC: ER 19:39
DX: S09.90XA Unspecified injury of head, initial encounter (principal); I10 Essential (primary) hypertension; E11.9 Type 2 diabetes mellitus without complications; Z88.0 Allergy status to penicillin; Z91.83 Wandering in diseases classified elsewhere; Z86.73 Personal history of transient ischemic attack (TIA), and cerebral infarction without residual deficits; Z79.1 Long term (current) use of non-steroidal anti-inflammatories (NSAID); Z79.4 Long term (current) use of insulin; Z79.899 Other long term (current) drug therapy; W05.0XXA Fall from non-moving wheelchair, initial encounter; Y93.89 Activity, other specified; Y92.89 Other specified places as the place of occurrence of the external cause; Y99.8 Other external cause status
CPT/HCPCS: 70450-TC; 71045-TC; 72125-TC; 73502

== ENCOUNTER 2024-05-05 14:58 | Emergency (ER) | payer MEDICARE, OTHER ==
[~2024-05-05] VITALS: Ht 152.4 cm; Wt 68.9 kg
[2024-05-05 19:57] VITALS: BP 130/75; TEMP 98; O2SAT 98
== END 2024-05-05 19:57 ==
LOC: ER 15:06
DX: Z13.89 Encounter for screening for other disorder (principal); F03.90 Unspecified dementia, unspecified severity, without behavioral disturbance, psychotic disturbance, mood disturbance, and anxiety; Z86.73 Personal history of transient ischemic attack (TIA), and cerebral infarction without residual deficits; I10 Essential (primary) hypertension; E11.9 Type 2 diabetes mellitus without complications; Z79.84 Long term (current) use of oral hypoglycemic drugs; Z79.899 Other long term (current) drug therapy; Z88.0 Allergy status to penicillin; W07.XXXA Fall from chair, initial encounter; Y93.89 Activity, other specified; Y92.89 Other specified places as the place of occurrence of the external cause; Y99.8 Other external cause status
CPT/HCPCS: 70450-TC; 72125-TC